=== PATIENT | female | born 1985 | race Two or more races ===

== ENCOUNTER 2017-12-28 22:22 | Emergency (ER) | payer MEDICAID ==
[2017-12-29] MEDS ORDERED: ALBUTEROL SULFATE 0.083% NEB 2.5 MG/3 ML AMPUL NEB ONE (01:23)
[2017-12-29] MEDS ORDERED: IBUPROFEN 800 MG TABLET PO ONE (01:23)
[2017-12-29] MEDS ORDERED: PREDNISONE 20 MG TABLET PO ONE (01:23)
--- NOTE | 2017-12-29 01:23 | ER Document Report ---
HPI - HPI Pain Level: 3 Context: Patient is a 32-year-old female presents emergency department with a chief complaint of body aches, sinus congestion, nonproductive cough. She does admit to a history of asthma. She states that she did run out of her inhaler and feels that she has been coughing more over the past couple of days. States she has been taking Tylenol Motrin at home as needed for body aches. She otherwise denies any dyspnea on exertion, chest pain, weakness, syncope - REPRODUCTIVE Reproductive: DENIES: : - DERM Skin Color: Normal Past Medical History - Social History Smoking Status: Never Smoker Family History: Reviewed & Not Pertinent Patient has suicidal ideation: No Patient has homicidal ideation: No Pulmonary Medical History: Reports: Hx Asthma Renal/ Medical History: Reports: Hx Peritoneal Dialysis Past Surgical History: Reports: Hx Section - Immunizations Hx Diphtheria, Pertussis, Tetanus Vaccination: No Vertical Provider Document - CONSTITUTIONAL Agree With Documented VS: Yes Notes: PHYSICAL EXAM GENERAL: Alert, interacts well. HEAD: Normocephalic, atraumatic. EYES: Pupils equal, round, and reactive to light. Extraocular movements intact. ENT: Oral mucosa moist, tongue midline. NECK: Full range of motion. Supple. Trachea midline. LUNGS: Clear to auscultation bilaterally, no wheezes, rales, or rhonchi. No respiratory distress. HEART: Regular rate and rhythm. No murmurs, gallops, or rubs. ABDOMEN: Soft, nondistended, nontender. No guarding, rebound, or rigidity.. Bowel sounds present in all 4 quadrants. EXTREMITIES: Moves all 4 extremities spontaneously. No edema, radial and dorsalis pedis pulses 2/4 bilaterally. No cyanosis. NEUROLOGICAL: Alert and oriented x4. Normal speech. PSYCH: Normal affect, normal mood. SKIN: Warm, dry, normal turgor. No rashes or lesions noted. - INFECTION CONTROL TRAVEL OUTSIDE OF THE [place] IN LAST 30 DAYS: No Course - Re-evaluation Re-evalutation: 12/29/17 01:58 Presentation is most consistent with a viral upper respiratory infection. Patient is overall well appearance, vitals within normal limits, well-hydrated. Patient denies any headache, neck pain, and has no evidence of meningismus on examination. Lungs are clear bilaterally. No evidence of respiratory distress. Based on clinical exam and history, I do not suspect an acute pneumonia, meningitis, strep pharyngitis, or an acute encephalitis. No laboratory or imaging testing is indicated at this time. Will discharge patient with return precautions and followup recommendations. They are in agreement this plan have verbalized understanding return precautions. - Vital Signs Vital signs: Temp Pulse Resp BP Pulse Ox 99.9 F 95 20 154/89 H 98 12/28/17 22:29 12/28/17 22:29 12/28/17 22:29 12/28/17 22:29 12/28/17 22:29 Discharge - Discharge Clinical Impression: Asthma Condition: Good Disposition: HOME, SELF-CARE Instructions: Asthma ([facility]), Viral Syndrome ([facility]) Additional Instructions: Please start taking Motrin up to 800 mg every 8 hours or 600 mg every 6 hours for body aches and he can also take [id number] Tylenol as directed on the bottle. Regarding your cough he can start taking Mucinex which will help bring up a lot of your sputum. Please be sure to take your steroids as directed. Please follow-up with primary care doctor in the next week. Please return to the emergency department for any worsening shortness of breath, fever, difficulty breathing Prescriptions: Albuterol Sulfate [Proair HFA Inhalation Aerosol 8.5 gm MDI] 2 puff IH Q4H PRN # 1 mdi PRN Reason: Prednisone [Deltasone 20 mg Tablet] 3 tab PO DAILY 5 Days tablet Forms: Return to Work
[2017-12-29] MEDS ORDERED: ALBUTEROL SULFATE HFA (90 MCG/PUFF) 8 GM MDI (1 MDI/ER DISP) IH PRN (01:26)
[2017-12-29 01:54] VITALS: BP 141/75
== END 2017-12-29 01:54 | disposition home or self-care (01) ==
LOC: ER 22:22
DX: J45.909 Unspecified asthma, uncomplicated (principal); R52 Pain, unspecified; R09.81 Nasal congestion; R05 Cough
CPT/HCPCS: 99283; J3490 ×2; J7512

== ENCOUNTER 2017-12-31 15:59 | Emergency (ER) | payer MEDICAID ==
--- NOTE | 2017-12-31 16:36 | ER Document Report ---
ED Respiratory Problem - General Chief Complaint: Cough Stated Complaint: COUGH Time Seen by Provider: 12/31/17 16:18 Mode of Arrival: Medic Information source: Patient Notes: 32-year-old female presents to ED for complaint of body aches cough congestion' s chills feels like she has a fever with sweating. She states she does not take her temperature. She states yesterday she got cough and so bad that she almost passed out. She states she has vomited clear fluid a couple times yesterday. She states she was seen on the fifth but they did not do any labs or x-rays. She states she is not feeling any better. Today she has a red rash to the left lower leg. TRAVEL OUTSIDE OF THE [place] IN LAST 30 DAYS: No - HPI Patient complains to provider of: COPD Onset: Last week Duration: Continuous Initiating Event: URI Quality of pain: Achy Severity: Severe Pain Level: 5 Associated symptoms: Congestion, Cough, PND, Runny nose, Sinus pain/pressure, Short of breath, Sore Throat, Other - Rash to the left lower leg/ankle, body aches Similar symptoms previously: Yes Recently seen / treated by doctor: Yes - Related Data Allergies/Adverse Reactions: No Known Allergies Allergy (Verified 12/31/17 16:02) Past Medical History - General Information source: Patient - Social History Smoking Status: Never Smoker Cigarette use (# per day): No Chew tobacco use (# tins/day): No Smoking Education Provided: No Frequency of alcohol use: None Drug Abuse: None Family History: Reviewed & Not Pertinent Patient has suicidal ideation: No Patient has homicidal ideation: No - Past Medical History Cardiac Medical History: Reports: None Pulmonary Medical History: Reports: Hx Asthma EENT Medical History: Reports: None Neurological Medical History: Reports: None Endocrine Medical History: Reports: None Renal/ Medical History: Reports: Hx Peritoneal Dialysis Malignancy Medical History: Reports: None GI Medical History: Reports: None Musculoskeltal Medical History: Reports None Skin Medical History: Reports None Psychiatric Medical History: Reports: None Traumatic Medical History: Reports: None Infectious Medical History: Reports: None Past Surgical History: Reports: Hx Section - Immunizations Immunizations up to date: No Hx Diphtheria, Pertussis, Tetanus Vaccination: No Review of Systems - Review of Systems Constitutional: Chills, Fever, Recent illness EENT: Nose discharge, Sinus pressure, Sinus discharge, Throat pain Cardiovascular: No symptoms reported Respiratory: Cough Gastrointestinal: No symptoms reported Genitourinary: No symptoms reported Female Genitourinary: No symptoms reported Musculoskeletal: No symptoms reported Skin: No symptoms reported Hematologic/Lymphatic: No symptoms reported Neurological/Psychological: No symptoms reported -: Yes All other systems reviewed and negative Physical Exam - Vital signs Vitals: Temp Pulse Resp BP Pulse Ox 98.0 F 83 18 121/75 98 12/31/17 16:04 12/31/17 16:04 12/31/17 16:04 12/31/17 16:04 12/31/17 16:04 Interpretation: Normal - General General appearance: Appears well, Alert - HEENT Head: Normocephalic, Atraumatic Eyes: Normal Pupils: PERRL Ears: Normal External canal: Normal Tympanic membrane: Normal Sinus: Normal Nasal: Purulent discharge, Swelling Mouth/Lips: Normal Mucous membranes: Normal Pharynx: Post nasal drainage Neck: Normal - Respiratory Respiratory status: No respiratory distress Chest status: Nontender Breath sounds: Nonproductive cough. No: Productive cough, Rales, Rhonchi, Stridor, Wheezing Chest palpation: Normal - Cardiovascular Rhythm: Regular Heart sounds: Normal auscultation Murmur: No - Abdominal Inspection: Normal Distension: No distension Bowel sounds: Normal Tenderness: Nontender Organomegaly: No organomegaly - Back Back: Normal, Nontender - Extremities General upper extremity: Normal inspection, Nontender, Normal color, Normal ROM , Normal temperature General lower extremity: Normal inspection, Nontender, Normal color, Normal ROM , Normal temperature, Normal weight bearing. No: Kristie's sign - Neurological Neuro grossly intact: Yes Cognition: Normal Orientation: AAOx4 Soni Coma Scale Eye Opening: Spontaneous [place] Coma Scale Verbal: Oriented [place] Coma Scale Motor: Obeys Commands Soni Coma Scale Total: 15 Speech: Normal Motor strength normal: LUE, RUE, LLE, RLE Sensory: Normal - Psychological Associated symptoms: Normal affect, Normal mood - Skin Skin Temperature: Warm Skin Moisture: Dry Skin Color: Normal Course - Re-evaluation Re-evalutation: 12/31/17 21:58 After performing a Medical Screening Examination, I estimate there is LOW risk for ACUTE CORONARY SYNDROME, RESPIRATORY FAILURE, SEPSIS OR MENINGITIS, thus I consider the discharge disposition reasonable. I have reevaluated this patient multiple times and no significant life threatening changes are noted. The patient and I have discussed the diagnosis and risks, and we agree with discharging home with close follow-up. We also discussed returning to the Emergency Department immediately if new or worsening symptoms occur. We have discussed the symptoms which are most concerning (e.g., changing or worsening pain, trouble swallowing or breathing, neck stiffness, fever) that necessitate immediate return. - Vital Signs Vital signs: Temp Pulse Resp BP Pulse Ox 98.2 F 86 18 127/73 H 100 12/31/17 17:44 12/31/17 17:44 12/31/17 17:44 12/31/17 17:44 12/31/17 17:44 - Laboratory Result Diagrams: 12/31/17 16:35 12/31/17 16:35 Laboratory results interpreted by me: 12/31/17 12/31/17 16:35 16:35 WBC 3.3 L Absolute Neutrophils 1.5 L Potassium 3.4 L Discharge - Discharge Clinical Impression: URI (upper respiratory infection) Qualifiers: URI type: unspecified URI Qualified Code(s): J06.9 - Acute upper respiratory infection, unspecified Condition: Stable Disposition: HOME, SELF-CARE Instructions: Family Physicians / Practices Additional Instructions: UPPER RESPIRATORY ILLNESS: You have a viral infection of the respiratory passages -- a "cold." This common infection causes nasal congestion, drainage, and often sore throat and cough. It is highly contagious. The disease usually lasts about 10 to 14 days. There is no "cure" for the viral infection -- it must run its course. If there is a complication, such as bacterial infection in the nose, sinuses, middle ear, or bronchial tubes, antibiotics may be required. The antibiotics won't affect the virus. Drink plenty of fluids. A humidifier may help. An expectorant medication or decongestant may make you more comfortable. Use acetaminophen or ibuprofen for fever or aches. See the doctor if fever persists over two days, if there is any significant worsening of your symptoms, or if you simply fail to improve as expected. DECONGESTANT MEDICATION: A decongestant medicine has been suggested. Often this medicine is combined in the same tablet with an antihistamine or expectorant. This type of medicine is helpful in treating a bad cold or sinus condition, as well as in treatment of the nasal congestion of hay fever. It is not of much benefit for lung infections. Decongestant medicines are related to stimulants. They can cause an increase in blood pressure and heart rate. Persons with heart disease and high blood pressure should not take decongestants without discussing this with the physician. If you develop palpitations, chest pain, headache, or tremors, stop the medicine and consult your physician. COUGH-SUPPRESSANT & EXPECTORANT MEDICATION: You are to use a cough medication as needed for relief of symptoms. This medicine is a combination of an expectorant (to make the mucous thinner and more easily "coughed up") and a cough suppressant (to reduce the frequency of coughing). The cough-suppressant medicine is related to narcotics. You may experience mild nausea and sleepiness. Some patients who are very sensitive to narcotics may have stomach pain from this medicine. Taking the medicine with food reduces these side effects. Do not drive or work with machinery until you know how this medicine affects you. The expectorant should have no side effects. Iodine-containing expectorants (such as organidin) should not be taken by persons with active thyroid disease unless approved by your doctor. Call the doctor if you develop shortness of breath, hives, rash, itching, lightheadedness, or severe nausea and vomiting. USE OF ACETAMINOPHEN (Tylenol): Acetaminophen may be taken for pain relief or fever control. It's much safer than aspirin, offering a wider range of "safe" dosages. It is safe during . Some brand names are Tylenol, Panadol, Datril, Anacin 3, Tempra, and Liquiprin. Acetaminophen can be repeated every four hours. The following are maximum recommended dosages: >89 pounds or adults 650 mg to 900 mg Acetaminophen can be repeated every four hours. Maximum dose not to exceed 4000 mg a day. FOLLOW-UP CARE: If you have been referred to a physician for follow-up care, call the physician s office for an appointment as you were instructed or within the next two days. If you experience worsening or a significant change in your symptoms, notify the physician immediately or return to the Emergency Department at any time for re-evaluation. Forms: Return to Work Referrals: [facility] [Provider Group] - Follow up as needed
[2017-12-31 16:57] LABS: ABSOLUTE EOSINOPHILS # (AUTO) 0.1 10^3/uL (0.0-0.6); ABSOLUTE LYMPHOCYTES (AUTO) 1.3 10^3/uL (0.5-4.7); ABSOLUTE MONOCYTES (AUTO) 0.4 10^3/uL (0.1-1.4); ABSOLUTE NEUT (AUTO) 1.5 10^3/uL (1.7-8.2); BASOPHILS % (AUTO) 0.5 % (0-2); EOSINOPHILS % (AUTO) 1.8 % (0-6); HEMATOCRIT 38.3 % (36.0-47.0); HEMOGLOBIN 13.3 g/dL (12.0-15.5); LYMPHOCYTES % (AUTO) 40.4 % (13-45); MEAN CORPUSCULAR HEMOGLOBIN 29.1 pg (27.0-33.4); MEAN CORPUSCULAR HGB CONC 34.8 g/dL (32.0-36.0); MEAN CORPUSCULAR VOLUME 84 fl (80-97); MONOCYTES % (AUTO) 10.8 % (3-13); PLATELET COUNT 200 10^3/uL (150-450); RED BLOOD COUNT 4.58 10^6/uL (3.72-5.28); RED CELL DISTRIBUTION WIDTH 13.4 % (11.5-14.0); SEGMENTED NEUTROPHILS % (AUTO) 46.5 % (42-78); TOTAL CELLS COUNTED % (AUTO) 100 %; WHITE BLOOD COUNT 3.3 10^3/uL (4.0-10.5)
--- NOTE | 2017-12-31 17:06 | RADIOLOGY REPORT (SQ) ---
EXAM DESCRIPTION: CHEST 2 VIEWS COMPLETED DATE/TIME: 12/31/2017 4:53 pm REASON FOR STUDY: cough congestion COMPARISON: 07/26/2016 EXAM PARAMETERS: NUMBER OF VIEWS: two views TECHNIQUE: Digital Frontal and Lateral radiographic views of the chest acquired. RADIATION DOSE: NA LIMITATIONS: none FINDINGS: LUNGS AND PLEURA: No opacities, masses or pneumothorax. No pleural effusion. MEDIASTINUM AND HILAR STRUCTURES: No masses or contour abnormalities. HEART AND VASCULAR STRUCTURES: Heart normal size. No evidence for failure. BONES: No acute findings. HARDWARE: None in the chest. OTHER: No other significant finding. IMPRESSION: NO ACUTE RADIOGRAPHIC FINDING IN THE CHEST. TECHNICAL DOCUMENTATION: JOB ID: [id number] [place]-72 2010 [employer]- All Rights Reserved Reading location - IP/workstation name: [employer]
[2017-12-31 17:18] LABS: INTERNATIONAL RATION (INR) 0.91; PROTHROMBIN TIME 12.7 SEC (11.4-15.4)
[2017-12-31 17:19] LABS: ALANINE AMINOTRANSFERASE 36 U/L (9-52); ALKALINE PHOSPHATASE 52 U/L (38-126); ANION GAP 11 (5-19); ASPARTATE AMINO TRANSFERASE 22 U/L (14-36); BILIRUBIN,DIRECT 0.1 mg/dL (0.0-0.4); BILIRUBIN,TOTAL 0.4 mg/dL (0.2-1.3); BLOOD UREA NITROGEN 12 mg/dL (7-20); CALCIUM 9.5 mg/dL (8.4-10.2); CARBON DIOXIDE 26 mmol/L (22-30); CHLORIDE 106 mmol/L (98-107); GLUCOSE 96 mg/dL (75-110); POTASSIUM 3.4 mmol/L (3.6-5.0); SODIUM 142.7 mmol/L (137-145); TOTAL PROTEIN 6.8 g/dL (6.3-8.2)
[2017-12-31 17:47] VITALS: BP 127/73
== END 2017-12-31 17:47 | disposition home or self-care (01) ==
LOC: ER 15:59
DX: J06.9 Acute upper respiratory infection, unspecified (principal); J45.909 Unspecified asthma, uncomplicated; R05 Cough; R11.10 Vomiting, unspecified; J34.89 Other specified disorders of nose and nasal sinuses; R06.02 Shortness of breath; J02.9 Acute pharyngitis, unspecified
CPT/HCPCS: 36415; 71046; 80053; 84703; 85025; 85610; 85730; 99283

== ENCOUNTER → 2018-01-11 | Outpatient (CLI) | payer MEDICAID ==
--- NOTE | 2018-01-11 17:14 | XCELERA REPORT ---
[address] [address] Lower Extremity Venous Evaluation Name: CRISTEL RAMOS Age: 32 yrs Gender: Female : 1985 Patient Status: Outpatient Patient Location: Study Date: 01/11/2018 11:01 AM Procedure: Color flow and duplex imaging bilaterally of the veins of the lower extremities as well as the Common Femoral veins. Reason For Study: PAIN Ordering Physician: DALI CHAN Performed By: Ariadne Cunningham Right Sided Venous Evaluation Normal vessel filling wall to wall, compression and augmentation as well as Colour flow down to the infrageniculate veins. Left Sided Venous Evaluation Reflux in distal Femoral, Popliteal and Short Saphenous veins. Normal vessel filling wall to wall, compression and augmentation as well as Colour flow down to the infrageniculate veins. Interpretation Summary No duplex evidence of DVT or obstruction in the bilateral lower extremities. Reflux as noted. : DALI CHAN > Fritz Michael
== END ==
LOC: SP 10:01
PROVIDERS: ATTEND Family Medicine
DX: M79.605 Pain in left leg (principal)
CPT/HCPCS: 93970

== ENCOUNTER 2018-03-13 18:15 | Emergency (ER) | payer MEDICAID ==
[2018-03-13 18:23] VITALS: BP 145/78
--- NOTE | 2018-03-13 19:00 | ER Document Report ---
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 no specific injury Associated Symptoms: None Exacerbated by: Movement Relieved by: Denies Similar symptoms previously: Yes - ROS ROS below otherwise negative: Yes Systems Reviewed and Negative: Yes All other systems reviewed and negative - MUSCULOSKELETAL Musculoskeletal: REPORTS: Extremity pain - BILATERAL UPPER EXTREMITIES Past Medical History - General Information source: Patient - Social History Smoking Status: Unknown if Ever Smoked Chew tobacco use (# tins/day): No Frequency of alcohol use: None Drug Abuse: None Lives with: Spouse/Significant other Family History: Reviewed & Not Pertinent Patient has suicidal ideation: No Patient has homicidal ideation: No Pulmonary Medical History: Reports: Hx Asthma Renal/ Medical History: Denies: Hx Peritoneal Dialysis Past Surgical History: Reports: Hx Section - Immunizations Immunizations up to date: No Hx Diphtheria, Pertussis, Tetanus Vaccination: No Vertical Provider Document - CONSTITUTIONAL Agree With Documented VS: Yes Exam Limitations: No Limitations General Appearance: No Apparent Distress - INFECTION CONTROL TRAVEL OUTSIDE OF THE [place] IN LAST 30 DAYS: No - HEENT HEENT: Normocephalic - NECK Neck: Supple - MUSCULOSKELETAL/EXTREMETIES Musculoskeletal/Extremeties: MAEW, FROM, Tender - radial and volar foreaem soft tissue tender, especially over tendons, no isidoro tenderness - NEURO Level of Consciousness: Awake Motor/Sensory: No Motor Deficit, No Sensory Deficit - DERM Integumentary: No Rash Course - Re-evaluation Re-evalutation: 03/13/18 19:30 Prelim x-ray is negative - Vital Signs Vital signs: Temp Pulse Resp BP Pulse Ox 99.2 F 74 15 145/78 H 97 03/13/18 18:22 03/13/18 18:22 03/13/18 18:22 03/13/18 18:22 03/13/18 18:22 Procedures - Immobilization Right Wrist Time completed: 19:45 Pre-Proc Neuro Vasc Exam: Normal Immobilizer type: Cock-up Performed by: PCT Post-Proc Neuro Vasc Exam: Normal Alignment checked and good: Yes Discharge - Discharge Clinical Impression: Right wrist tendinitis Condition: Good Disposition: HOME, SELF-CARE Instructions: Acetaminophen, Ibuprofen (General) ([facility]), Temporary Splint ([facility]) , Tendonitis ([facility]) Additional Instructions: Call and schedule appointment with orthopedic doctor Juancarlos cardona splint for comfort Motrin on a regular basis with food Tylenol for pain up to 4000 mg per day Return to the emergency room any concerns Prescriptions: Ibuprofen [Motrin 800 mg Tablet] 800 mg PO Q8HP PRN #30 tablet PRN Reason: Referrals: ALBERTINA VALDEZ MD [ACTIVE STAFF] - Follow up as needed (call for appt)
--- NOTE | 2018-03-13 19:43 | RADIOLOGY REPORT (SQ) ---
EXAM DESCRIPTION: WRIST RIGHT 3 VIEWS COMPLETED DATE/TIME: 03/13/2018 7:27 pm REASON FOR STUDY: pain for 2 weeks COMPARISON: None. NUMBER OF VIEWS: Three views. TECHNIQUE: AP, lateral, and oblique radiographic images acquired of the right wrist. LIMITATIONS: None. FINDINGS: MINERALIZATION: Normal. BONES: No acute fracture or dislocation. No worrisome bone lesions. Normal alignment. SOFT TISSUES: No soft tissue swelling. No foreign body. OTHER: No other significant finding. IMPRESSION: NEGATIVE STUDY OF THE RIGHT WRIST. NO RADIOGRAPHIC EVIDENCE OF ACUTE INJURY. TECHNICAL DOCUMENTATION: JOB ID: [id number] [employer]- All Rights Reserved Reading location - IP/workstation name: [email or web address]
== END 2018-03-13 19:45 | disposition home or self-care (01) ==
LOC: ER 18:15
DX: M25.531 Pain in right wrist (principal); M77.9 Enthesopathy, unspecified
CPT/HCPCS: 99283; 73110; L3908

== ENCOUNTER 2018-04-24 22:44 | Emergency (ER) | payer OTHER, MEDICAID ==
[2018-04-24 23:29] VITALS: BP 149/90
--- NOTE | 2018-04-25 00:18 | ER Document Report ---
ED Fall - General Chief Complaint: Fall Injury Stated Complaint: FALL/ R WRIST INJURY Time Seen by Provider: 04/25/18 00:06 TRAVEL OUTSIDE OF THE [place] IN LAST 30 DAYS: No - HPI Notes: 33-year-old female presents with right wrist and low back injury. Yesterday patient was at work when she states she fell on some water in the freezer and fell backwards. Complains of right wrist pain about her dorsal lateral wrist and pain in her lower back. Aching throbbing, nonradiating. No head injury, no numbness tingling, no loss consciousness. No other modifying factors, no other associated symptoms, no other provocative or palliative factors. - Related data Allergies/Adverse Reactions: No Known Allergies Allergy (Verified 12/31/17 16:02) Past Medical History - Social History Smoking Status: Never Smoker Family History: Reviewed & Not Pertinent Pulmonary Medical History: Reports: Hx Asthma Renal/ Medical History: Reports: Hx Peritoneal Dialysis Past Surgical History: Reports: Hx Section - Immunizations Immunizations up to date: No Hx Diphtheria, Pertussis, Tetanus Vaccination: No Review of Systems - Review of Systems Notes: Review of systems as in history of present illness, otherwise no significant headache, chest pain, abdominal pain. Physical Exam - Vital signs Vitals: Temp Pulse Resp BP Pulse Ox 98.6 F 78 16 149/90 H 98 04/24/18 23:27 04/24/18 23:27 04/24/18 23:27 04/24/18 23:27 04/24/18 23:27 - Notes Notes: General: Well-developed, well-nourished HEENT: Normocephalic. No external trauma noted. No haywood sign, no hemotympanum. Mucosa is moist. No intraoral trauma. Neck: Midline trachea, no JVD. No midline cervical spine tenderness. No step- off or deformity. Chest: Normal excursion, no accessory muscle use. No gross trauma. Abdomen: Soft, nondistended. Nontender. No bruising. Pelvis: Stable. Vascular: Strong and symmetric upper and lower extremity pulses. Well-perfused extremities. Motor: Normal tone and power. Neurologic: Alert, nonfocal. Sensation symmetric and intact. Skin: No significant lacerations or purpura. Extremities: No cyanosis. No reproducible bony point tenderness about the wrist. Some mild pain with range of motion. No edema or erythema, no bruising. Back: Mild paralumbar tenderness, no point vertebral tenderness. Course - Re-evaluation Re-evalutation: 04/25/18 00:26 Well-appearing female likely wrist sprain or lumbar strain. I see no bony point tenderness or high-risk features. She is advised if she has persistent symptoms for more than a few days to follow-up with primary care physician and x -ray may be in order. Given a wrist splint for comfort. Naprosyn and Flexeril are prescribed. Otherwise no bony tenderness about her spine, no indication for lumbar spine films. - Vital Signs Vital signs: Temp Pulse Resp BP Pulse Ox 98.6 F 78 16 149/90 H 98 04/24/18 23:27 04/24/18 23:27 04/24/18 23:27 04/24/18 23:27 04/24/18 23:27 Discharge - Discharge Clinical Impression: Wrist sprain Qualifiers: Encounter type: initial encounter Laterality: right Qualified Code(s): S63.501A - Unspecified sprain of right wrist, initial encounter Lumbar strain Qualifiers: Encounter type: initial encounter Qualified Code(s): S39.012A - Strain of muscle, fascia and tendon of lower back, initial encounter Condition: Good Disposition: HOME, SELF-CARE Instructions: Low Back Pain ([facility]), Wrist Sprain ([facility]) Prescriptions: Cyclobenzaprine HCl [Flexeril 10 mg Tablet] 10 mg PO TIDP PRN #15 tab NS PRN Reason: Naproxen 500 mg PO Q12 PRN #12 tablet PRN Reason: Referrals: DALI CHAN MD [Primary Care Provider] - Follow up as needed
== END 2018-04-25 01:03 | disposition home or self-care (01) ==
LOC: ER 22:44
DX: S63.501A Unspecified sprain of right wrist, initial encounter (principal); S39.012A Strain of muscle, fascia and tendon of lower back, initial encounter; W01.0XXA Fall on same level from slipping, tripping and stumbling without subsequent striking against object, initial encounter; Y99.0 Civilian activity done for income or pay
CPT/HCPCS: 99283; L3908

== ENCOUNTER 2018-10-09 12:40 | Emergency (ER) | payer MEDICAID ==
[2018-10-09 12:45] VITALS: BP 135/85
[2018-10-09] MEDS ORDERED: IPRATROPIUM/ALBUTEROL 0.5-2.5 MG/3 ML AMPUL NEB ONE (12:56)
[2018-10-09] MEDS ORDERED: DEXAMETHASONE 4 MG TABLET PO ONE (12:56)
[2018-10-09] MEDS ORDERED: PSEUDOEPHEDRINE HCL 30 MG TABLET PO ONE (12:56)
[2018-10-09] MEDS ORDERED: IBUPROFEN 800 MG TABLET PO ONE (12:56)
--- NOTE | 2018-10-09 12:57 | ER Document Report ---
HPI - HPI Patient complains to provider of: Sore throat Time Seen by Provider: 10/09/18 12:51 Onset/Duration: Persistent Quality of pain: Achy Pain Level: 3 Context: Patient presents complaining of sore throat for the past 3 days with cough and congestion. Patient denies any fever. Associated Symptoms: Nonproductive cough, Rhinnorhea, Sinus pain/drainage, Sore throat. denies: Fever Exacerbated by: Denies Relieved by: Denies Similar symptoms previously: No Recently seen / treated by doctor: No - ROS ROS below otherwise negative: Yes Systems Reviewed and Negative: Yes All other systems reviewed and negative - CONSTITUTIONAL Constitutional: DENIES: Fever, Chills - EENT EENT: REPORTS: Sore Throat, Nasal Drainage-Clear, Congestion - RESPIRATORY Respiratory: REPORTS: Coughing. DENIES: Trouble Breathing - GASTROINTESTINAL Gastrointestinal: DENIES: Abdominal Pain, Nausea - REPRODUCTIVE Reproductive: DENIES: : - MUSCULOSKELETAL Musculoskeletal: DENIES: Back Pain, Neck Pain - DERM Skin Color: Normal Skin Problems: None Past Medical History - General Information source: Patient - Social History Smoking Status: Never Smoker Frequency of alcohol use: None Drug Abuse: None Occupation: [employer] Family History: Reviewed & Not Pertinent Pulmonary Medical History: Reports: Hx Asthma Renal/ Medical History: Reports: Hx Peritoneal Dialysis Past Surgical History: Reports: Hx Section - Immunizations Immunizations up to date: No Hx Diphtheria, Pertussis, Tetanus Vaccination: No Vertical Provider Document - CONSTITUTIONAL Agree With Documented VS: Yes Exam Limitations: No Limitations General Appearance: WD/WN, No Apparent Distress - INFECTION CONTROL TRAVEL OUTSIDE OF THE U[place]S. IN LAST 30 DAYS: No - HEENT HEENT: Atraumatic, Normocephalic, Pharyngeal Tenderness, Pharyngeal Erythema. negative: Pharyngeal Exudate, Tympanic Membrane Red, Tympanic Membrane Bulging - NECK Neck: Normal Inspection, Supple. negative: Lymphadenopathy-Left, Lymphadenopathy-Right - RESPIRATORY Respiratory: No Respiratory Distress, Chest Non-Tender, Wheezing - faintly with cough only - CARDIOVASCULAR Cardiovascular: Regular Rate, Regular Rhythm, No Murmur - GI/ABDOMEN Gastrointestinal: Abdomen Soft - BACK Back: Normal Inspection - MUSCULOSKELETAL/EXTREMETIES Musculoskeletal/Extremeties: MAEW, No Edema - NEURO Level of Consciousness: Awake, Alert, Appropriate Motor/Sensory: No Motor Deficit - DERM Integumentary: Warm, Dry, No Rash Course - Vital Signs Vital signs: Temp Pulse Resp BP Pulse Ox 97.6 F 79 18 135/85 H 97 10/09/18 12:44 10/09/18 12:44 10/09/18 12:44 10/09/18 12:44 10/09/18 12:44 - Laboratory Laboratory results interpreted by me: 10/09/18 13:21 Labs- Entire Visit 10/09/18 12:55 Group A Strep Rapid NEGATIVE Discharge - Discharge Clinical Impression: Sore throat Upper respiratory infection Qualifiers: URI type: unspecified URI Qualified Code(s): J06.9 - Acute upper respiratory infection, unspecified Condition: Stable Disposition: HOME, SELF-CARE Instructions: Inhaled Bronchodilators ([facility]), Sore Throat ([facility]), Steroid Medication, Upper Respiratory Illness ([facility]) Additional Instructions: Return immediately for any new or worsening symptoms Followup with your primary care provider, call tomorrow to make a followup appointment Prescriptions: Albuterol Sulfate [Proair Hfa Inhalation Aerosol 8.5 gm Mdi] 2 puff IH Q4 PRN #1 mdi PRN Reason: Guaifenesin/Pseudoephedrne HCl [Mucinex D ER Tablet] 1 each PO Q12 PRN #12 tab.er.12h PRN Reason: Naproxen [Naprosyn 250 Nmg Tablet] 1 tab PO BID #14 tablet Forms: Return to Work Referrals: DALI CHAN MD [ACTIVE STAFF] - Follow up tomorrow
== END 2018-10-09 13:34 | disposition home or self-care (01) ==
LOC: ER 12:40
DX: J02.9 Acute pharyngitis, unspecified (principal); J06.9 Acute upper respiratory infection, unspecified; R05 Cough; J34.89 Other specified disorders of nose and nasal sinuses; J45.909 Unspecified asthma, uncomplicated
CPT/HCPCS: 94640; 99283; 87070; 87880; J3490 ×2; J7620

== ENCOUNTER 2019-03-26 15:14 | Emergency (ER) | payer SELFPAY ==
--- NOTE | 2019-03-26 17:05 | ER Document Report ---
ED Medical Screen (RME) - General Chief Complaint: Abdominal Pain Stated Complaint: ABDOMINAL PAIN Time Seen by Provider: 03/26/19 17:04 Primary Care Provider: VINEET WILLINGHAM PA-C [Primary Care Provider] - Follow up as needed TRAVEL OUTSIDE OF THE U.S. IN LAST 30 DAYS: No - HPI Notes: 03/26/19 17:04 Patient is a 34-year-old female with no significant past medical history who pr esents complaining of right lower pelvic pain that began this afternoon and has been sharp/intermittent. Patient states that she has had issues with her menstrual cycle recently and had an episode of brief spotting the other day. Patient states that she does have some soreness in her right lower back that does not radiate. She is otherwise able to eat and drink without difficulty. She is urinating normally and having normal bowel movements. No other vaginal discharge or odor. Denies EDWARDS, fever, neck pain, URI, CP, SOB, dysuria, or rash. I have treated and performed a rapid initial assessment of this patient. A comprehensive ED assessment and evaluation of the patient, analysis of test results and completion of medical decision making process will be conducted by additional ED providers. PHYSICAL EXAMINATION: GENERAL: Well-appearing, well-nourished and in no acute distress. A&Ox4. Answers questions appropriately. LUNGS: Breath sounds clear to auscultation bilaterally and equal. No wheezes rales or rhonchi. HEART: Regular rate and rhythm without murmurs, rubs, gallops. ABDOMEN: Soft, nondistended abdomen. No guarding, no rebound. Normal bowel sounds present. No CVA tenderness bilaterally. + rt lower pelvic tenderness (cannot elicit thorough abd exam w/o bed, however). - Related Data Allergies/Adverse Reactions: No Known Allergies Allergy (Verified 10/09/18 12:41) Past Medical History - Social History Family history: Reviewed & Not Pertinent Pulmonary Medical History: Reports: Hx Asthma Renal/ Medical History: Reports: Hx Peritoneal Dialysis Past Surgical History: Reports: Hx Section - Immunizations Immunizations up to date: No Hx Diphtheria, Pertussis, Tetanus Vaccination: No Physical Exam - Vital signs Vitals: Temp Pulse Resp BP Pulse Ox 98.1 F 101 H 18 138/92 H 96 03/26/19 15:19 03/26/19 15:19 03/26/19 15:19 03/26/19 15:19 03/26/19 15:19 Course - Vital Signs Vital signs: Temp Pulse Resp BP Pulse Ox 98.1 F 101 H 18 138/92 H 96 03/26/19 15:19 03/26/19 15:19 03/26/19 15:19 03/26/19 15:19 03/26/19 15:19 Doctor's Discharge - Discharge Referrals: VINEET WILLINGHAM PA-C [Primary Care Provider] - Follow up as needed
[2019-03-26 18:27] LABS: ABSOLUTE EOSINOPHILS # (AUTO) 0.2 10^3/uL (0.0-0.6); ABSOLUTE LYMPHOCYTES (AUTO) 2.1 10^3/uL (0.5-4.7); ABSOLUTE MONOCYTES (AUTO) 0.4 10^3/uL (0.1-1.4); ABSOLUTE NEUT (AUTO) 4.6 10^3/uL (1.7-8.2); BASOPHILS % (AUTO) 0.5 % (0-2); EOSINOPHILS % (AUTO) 2.9 % (0-6); HEMATOCRIT 36.3 % (36.0-47.0); HEMOGLOBIN 12.5 g/dL (12.0-15.5); LYMPHOCYTES % (AUTO) 27.9 % (13-45); MEAN CORPUSCULAR HEMOGLOBIN 28.9 pg (27.0-33.4); MEAN CORPUSCULAR HGB CONC 34.3 g/dL (32.0-36.0); MEAN CORPUSCULAR VOLUME 84 fl (80-97); MONOCYTES % (AUTO) 6.1 % (3-13); PLATELET COUNT 257 10^3/uL (150-450); RED BLOOD COUNT 4.31 10^6/uL (3.72-5.28); SEGMENTED NEUTROPHILS % (AUTO) 62.6 % (42-78); TOTAL CELLS COUNTED % (AUTO) 100 %; WHITE BLOOD COUNT 7.4 10^3/uL (4.0-10.5)
[2019-03-26 18:30] LABS: APPEARANCE,URINE CLEAR; BILIRUBIN,URINE NEGATIVE (NEGATIVE); COLOR,URINE YELLOW; GLUCOSE, URINE NEGATIVE (NEGATIVE); KETONES,URINE NEGATIVE (NEGATIVE); LEUKOCYTE ESTERASE,URINE NEGATIVE (NEGATIVE); NITRITE,URINE NEGATIVE (NEGATIVE); PROTEIN,URINE NEGATIVE (NEGATIVE); URINE SPECIFIC GRAVITY 1.025; UROBILINOGEN,URINE NEGATIVE mg/dL (<2.0)
[2019-03-26 18:43] LABS: ANION GAP 9 (5-19); BLOOD UREA NITROGEN 14 mg/dL (7-20); CALCIUM 9.8 mg/dL (8.4-10.2); CARBON DIOXIDE 30 mmol/L (22-30); CHLORIDE 100 mmol/L (98-107); GLUCOSE 86 mg/dL (75-110); POTASSIUM 4.2 mmol/L (3.6-5.0); SODIUM 139.3 mmol/L (137-145)
--- NOTE | 2019-03-26 19:32 | RADIOLOGY REPORT (SQ) ---
EXAM DESCRIPTION: U/S NON OB PEL TV W/DOPPLER COMPLETED DATE/TIME: 03/26/2019 7:22 pm REASON FOR STUDY: rt pelvic pain LMP 03/13/2019 COMPARISON: None. TECHNIQUE: Dynamic and static grayscale images acquired of the pelvis via transvaginal approach and recorded on PACS. Additional selected color Doppler and spectral images recorded. LIMITATIONS: None. FINDINGS: UTERUS: Contour normal. No mass. ENDOMETRIAL STRIPE: No focal or generalized thickening. No masses. CERVIX: 2.4 cm. No nabothian cysts. RIGHT OVARY AND DOPPLER: Normal size. No worrisome masses. Normal arterial vascular flow without evid ence for torsion. There is a small septated cystic area measuring 18 x 24 x 14 mm. LEFT OVARY AND DOPPLER: Ovary not seen. FREE FLUID: None noted. OTHER: No other significant finding. MEASUREMENTS: UTERUS: 10.6 x 7.2 x 5.8 cm. ENDOMETRIAL STRIPE: 13 mm. RIGHT OVARY: 3.4 x 3.1 x 2.7 cm. LEFT OVARY: Ovary not seen. IMPRESSION: Essentially normal study. There is a small septated cystic area or cluster of small cys ts in the right ovary as described. TECHNICAL DOCUMENTATION: JOB ID: [id number] [employer]- All Rights Reserved Rev-02/09 Reading location - IP/workstation name: [email or web address]
[2019-03-26] MEDS ORDERED: KETOROLAC TROMETHAMINE 60 MG/2 ML SDV IM ONE (22:56)
[2019-03-26 22:57] VITALS: BP 137/90
--- NOTE | 2019-03-26 22:57 | ER Document Report ---
ED General - General Chief Complaint: Abdominal Pain Stated Complaint: ABDOMINAL PAIN Time Seen by Provider: 03/26/19 17:04 Primary Care Provider: VINEET WILLINGHAM PA-C [Primary Care Provider] - Follow up as needed Notes: Patient is a 34-year-old female without chronic medical problems, history of morbid obesity, presents with complaints of 2 to 3 days of intermittent pain to her right lower abdomen. Patient reports pain as being a throbbing, aching pain. Comes and goes. No exacerbating or alleviating factors. States that symptoms have been relatively unchanged since onset. Denies a history of similar symptoms in the past. States for the past 6 weeks she has been having irregular vaginal bleeding. She does not follow with an [facility]. She has not had fever or constitutional symptoms. Denies pain at the time of my assessment. No dysuria. TRAVEL OUTSIDE OF THE [place] IN LAST 30 DAYS: No - Related Data Allergies/Adverse Reactions: No Known Allergies Allergy (Verified 10/09/18 12:41) Past Medical History - General Information source: Patient - Social History Smoking Status: Never Smoker Frequency of alcohol use: None Drug Abuse: None Lives with: Family Family History: Reviewed & Not Pertinent Patient has suicidal ideation: No Patient has homicidal ideation: No Pulmonary Medical History: Reports: Hx Asthma Renal/ Medical History: Denies: Hx Peritoneal Dialysis Past Surgical History: Reports: Hx Section - Immunizations Immunizations up to date: No Hx Diphtheria, Pertussis, Tetanus Vaccination: No Review of Systems - Review of Systems Notes: Constitutional: Negative for fever. HENT: Negative for sore throat. Eyes: Negative for visual changes. Cardiovascular: Negative for chest pain. Respiratory: Negative for shortness of breath. Gastrointestinal: Positive for lower abdominal pain Genitourinary: Positive for irregular vaginal bleeding Musculoskeletal: Negative for back pain. Skin: Negative for rash. Neurological: Negative for headaches, weakness or numbness. 10 point ROS negative except as marked above and in HPI. Physical Exam - Vital signs Vitals: Temp Pulse Resp BP Pulse Ox 98.1 F 101 H 18 138/92 H 96 03/26/19 15:19 03/26/19 15:19 03/26/19 15:19 03/26/19 15:19 03/26/19 15: Interpretation: Normal - Heart rate at 72 at the time of my assessment Notes: PHYSICAL EXAMINATION: GENERAL: Well-appearing, well-nourished and in no acute distress. HEAD: Atraumatic, normocephalic. EYES: Pupils equal round and reactive to light, extraocular movements intact, sclera anicteric, conjunctiva are normal. ENT: nares patent, oropharynx clear without exudates. Moist mucous membranes. NECK: Normal range of motion, supple without lymphadenopathy LUNGS: Breath sounds clear to auscultation bilaterally and equal. No wheezes rales or rhonchi. HEART: Regular rate and rhythm without murmurs ABDOMEN: Soft, nontender, normoactive bowel sounds. No guarding, no rebound. No masses appreciated. : Focal tenderness to the right adnexa. No suprapubic or left adnexal tenderness. No cervical motion tenderness. No discharge on pelvic examination. EXTREMITIES: Normal range of motion, no pitting or edema. No cyanosis. NEUROLOGICAL: No focal neurological deficits. Moves all extremities sponta neously and on command. PSYCH: Normal mood, normal affect. SKIN: Warm, Dry, normal turgor, no rashes or lesions noted. Course - Re-evaluation Re-evalutation: 03/26/19 22:53 Patient presents with several days of intermittent pain to her right pelvic region. On abdominal exam she has no focal tenderness to the right lower quadrant and no evidence of rebound or guarding. History, exam, absence of fever or leukocytosis are not suggestive of acute appendicitis. On pelvic examination she does have focal tenderness to the right adnexa. Transvaginal ultrasound does show multiple right ovarian cysts which may account for the pa tient's pain. The remainder of her labs and work-up is otherwise unremarkable. She is not , no evidence of cystitis or pyelonephritis. The remainder of her exam is likewise normal. Vitals within normal limits at the time of my assessment. Patient has been noted to be resting comfortably by nursing staff during her time here in the emergency department without any apparent discomfort. Have advised follow-up with [facility] as an outpatient. At this time will discharge with return precautions and follow-up recommendations. Verbal discharge instructions given a the bedside and opportunity for questions given. Medication warnings reviewed. Patient is in agreement with this plan and has verbalized understanding of return precautions and the need for primary care follow-up in the next 24-72 hours. - Vital Signs Vital signs: Temp Pulse Resp BP Pulse Ox 98.1 F 101 H 18 138/92 H 96 03/26/19 15:19 03/26/19 15:19 03/26/19 15:19 03/26/19 15:19 03/26/19 15:19 - Laboratory Result Diagrams: 03/26/19 18:15 03/26/19 18:15 - Diagnostic Test Radiology reviewed: Reports reviewed Discharge - Discharge Clinical Impression: Right lower quadrant abdominal pain, Right ovarian cyst Condition: Good Disposition: HOME, SELF-CARE Additional Instructions: Today been diagnosed with an ovarian cyst. These typically occur in the middle of your typical menstrual cycle. The pain should last for no more than 3-4 days. For your pain: Take ibuprofen 600 mg and acetaminophen 1000 mg every 6 hours together as needed for pain. Please follow-up with your [facility] regarding today's visit. If you have multiple recurrent cyst that continue to cause you pain like this, you may require hormone therapy such as oral control pills to prevent recurrence of the same. Return if you develop fever, nausea, vo miting, worsening abdominal pain, pass out, or have any other symptoms that are worrisome to you. Referrals: VINEET WILLINGHAM PA-C [Primary Care Provider] - Follow up as needed EDD HUTCHINS MD [ACTIVE STAFF] - Follow up in 3-5 days
== END 2019-03-26 23:40 | disposition home or self-care (01) ==
LOC: ER 15:14
DX: N83.291 Other ovarian cyst, right side (principal); R10.31 Right lower quadrant pain; N93.9 Abnormal uterine and vaginal bleeding, unspecified; J45.909 Unspecified asthma, uncomplicated
CPT/HCPCS: 99284; 96374; 36415; 85025; 81025; 80048; 81001; 76830; 93976; J1885

== ENCOUNTER 2019-05-19 17:15 | Emergency (ER) | payer SELFPAY ==
--- NOTE | 2019-05-19 18:50 | ER Document Report ---
ED Medical Screen (RME) - General Chief Complaint: Leg Pain Stated Complaint: LEG PAIN Time Seen by Provider: 05/19/19 18:00 Notes: Otherwise healthy female with remote history of DVT several years ago in [place] secondary to OCP use Asaf with chief complaint of left lower leg pain for the last month. Patient initially thought that she had a rash that was ringworm so she is treated it with for 5 different creams with no success but states that she started having significant pain over the last few days and her left lower extremity. Pain is constant and throbbing. Patient denies fevers or chills, denies active cancer or recent chemotherapy, denies prolonged immobilization, denies acute shortness of breath or chest pain. EXAM: There is an area of ecchymosis with some small petechiae on the anterior left emerson most likely consistent with a burst varicose vein, significant, acute tenderness to palpation over area with some mild tenderness to palpation along the posterior distal left lower extremity, no evidence of unilateral leg swelling I have greeted and performed a rapid initial assessment of this patient. A comprehensive ED assessment and evaluation of the patient, analysis of test results and completion of medical decision making process will be conducted by an additional ED providers. TRAVEL OUTSIDE OF THE U[place]S. IN LAST 30 DAYS: No - Related Data Allergies/Adverse Reactions: No Known Allergies Allergy (Verified 10/09/18 12:41) Past Medical History - Social History Family history: Reviewed & Not Pertinent Pulmonary Medical History: Reports: Hx Asthma Renal/ Medical History: Denies: Hx Peritoneal Dialysis Past Surgical History: Reports: Hx Section - Immunizations Immunizations up to date: No Hx Diphtheria, Pertussis, Tetanus Vaccination: No Physical Exam - Vital signs Vitals: Temp Pulse Resp BP Pulse Ox 98.8 F 96 16 138/80 H 95 05/19/19 17:32 05/19/19 17:32 05/19/19 17:32 05/19/19 17:32 05/19/19 17:32 Course - Vital Signs Vital signs: Temp Pulse Resp BP Pulse Ox 98.8 F 96 16 138/80 H 95 05/19/19 17:32 05/19/19 17:32 05/19/19 17:32 05/19/19 17:32 05/19/19 17:32
[2019-05-19 20:10] LABS: ABSOLUTE EOSINOPHILS # (AUTO) 0.2 10^3/uL (0.0-0.6); ABSOLUTE MONOCYTES (AUTO) 0.4 10^3/uL (0.1-1.4); ABSOLUTE NEUT (AUTO) 4.1 10^3/uL (1.7-8.2); BASOPHILS % (AUTO) 0.4 % (0-2); EOSINOPHILS % (AUTO) 2.7 % (0-6); HEMATOCRIT 35.1 % (36.0-47.0); HEMOGLOBIN 12.1 g/dL (12.0-15.5); LYMPHOCYTES % (AUTO) 29.7 % (13-45); MEAN CORPUSCULAR HEMOGLOBIN 28.7 pg (27.0-33.4); MEAN CORPUSCULAR HGB CONC 34.6 g/dL (32.0-36.0); MEAN CORPUSCULAR VOLUME 83 fl (80-97); MONOCYTES % (AUTO) 6.1 % (3-13); PLATELET COUNT 253 10^3/uL (150-450); RED BLOOD COUNT 4.23 10^6/uL (3.72-5.28); RED CELL DISTRIBUTION WIDTH 13.5 % (11.5-14.0); SEGMENTED NEUTROPHILS % (AUTO) 61.1 % (42-78); TOTAL CELLS COUNTED % (AUTO) 100 %; WHITE BLOOD COUNT 6.7 10^3/uL (4.0-10.5)
[2019-05-19] MEDS ORDERED: IBUPROFEN 600 MG TABLET PO ONE (20:16)
[2019-05-19] MEDS ORDERED: ACETAMINOPHEN 325 MG TABLET PO ONE (20:16)
[2019-05-19 20:38] LABS: INTERNATIONAL RATION (INR) 1.01; PROTHROMBIN TIME 13.3 SEC (11.4-15.4)
--- NOTE | 2019-05-19 21:18 | ER Document Report ---
HPI - HPI Time Seen by Provider: 05/19/19 18:00 Pain Level: 3 Context: Patient is a 34-year-old female presents to the emergency department with a chief complaint of left lower leg pain. Patient reports this has been present for 1 month. Patient states she does have a history of DVT 18 years ago. Patient was told when she lived and [place] that she needed to be on anticoagulation for the rest of her life. Patient reports when she moved to the area a couple years ago she was told by her provider that she did not need to be on anticoagulation. Patient states she is not on any control, has had any long extensive car rides, or injury. Patient states she is concerned she may have a blood clot. Patient denies shortness of breath or chest pain. Patient states she is not diabetic. 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 - REPRODUCTIVE Reproductive: DENIES: : - MUSCULOSKELETAL Musculoskeletal: REPORTS: Extremity pain - L leg - DERM Skin Color: Normal Past Medical History - General Information source: Patient - Social History Smoking Status: Unknown if Ever Smoked Frequency of alcohol use: None Drug Abuse: None Lives with: Family Family History: Reviewed & Not Pertinent Patient has suicidal ideation: No Patient has homicidal ideation: No - Past Medical History Cardiac Medical History: Reports: Hx DVT Pulmonary Medical History: Reports: Hx Asthma EENT Medical History: Reports: None Neurological Medical History: Reports: None Endocrine Medical History: Reports: None Renal/ Medical History: Reports: None. Denies: Hx Peritoneal Dialysis Malignancy Medical History: Reports: None GI Medical History: Reports: None Musculoskeletal Medical History: Reports None Skin Medical History: Reports None Psychiatric Medical History: Reports: None Traumatic Medical History: Reports: None Infectious Medical History: Reports: None Past Surgical History: Reports: Hx Section - Immunizations Immunizations up to date: No Hx Diphtheria, Pertussis, Tetanus Vaccination: No Vertical Provider Document - CONSTITUTIONAL Agree With Documented VS: Yes Exam Limitations: No Limitations General Appearance: No Apparent Distress - INFECTION CONTROL TRAVEL OUTSIDE OF THE [place] IN LAST 30 DAYS: No - HEENT HEENT: Atraumatic, Normal ENT Exam, Normocephalic, PERRLA - NECK Neck: Normal Inspection - RESPIRATORY Respiratory: Breath Sounds Normal, No Respiratory Distress - CARDIOVASCULAR Cardiovascular: Regular Rate, Regular Rhythm - GI/ABDOMEN Gastrointestinal: Abdomen Soft, Abdomen Non-Tender, Normal Bowel Sounds - NEURO Level of Consciousness: Awake, Alert, Appropriate - DERM Integumentary: Warm Notes: Patient has an area of ecchymosis with some petechiae to the anterior left emerson. There is some acute tenderness to palpation over this area as well as mild tenderness to the posterior calf. There is minimal swelling noted to the left lower extremity when compared to the right. Course - Re-evaluation Re-evalutation: 05/19/19 21:13 Per the alignment technician the venous Doppler was unofficially negative. I did inform the patient that earlier the supervising physician Dr. Mcgill evaluated the wound as he thinks this is a burst varicose vein. There is a small amount of redness distal to the ecchymosis, this does track down the leg patient reports this is new as of today. I did tell the patient to elevate her lower extremities over the next few days as this can help with swelling. Patient needs to follow-up with her primary care physician at [facility] [place] [place] and return for any co ncerning signs or symptoms. 05/19/19 21:25 Upon reassessment patient reports that her dog did scratch her around the area of redness. There is a crusted black center. I will place the patient on oral antibiotics for the next 5 days such as Keflex. This is a prophylactic due to the dog scratch. Patient reports her dog's shots are up-to-date. - Vital Signs Vital signs: Temp Pulse Resp BP Pulse Ox 98.8 F 96 16 138/80 H 95 05/19/19 17:32 05/19/19 17:32 05/19/19 17:32 05/19/19 17:32 05/19/19 17:32 - Laboratory Result Diagrams: 05/19/19 19:58 Laboratory results interpreted by me: 05/19/19 19:58 Hct 35.1 L Discharge - Discharge Clinical Impression: Leg pain Qualifiers: Laterality: left Qualified Code(s): M79.605 - Pain in left leg Condition: Stable Disposition: HOME, SELF-CARE Additional Instructions: Today you are seen in the emergency department for left lower leg pain. At this time you do not have any evidence of a blood clot. I do not believe you need antibiotics as there is no signs of infection. You do need to follow-up with your primary care physician for reevaluation. If you are able please take a few days to elevate the lower extremities. Please take ibuprofen 800 mg as needed for pain or [id number] Tylenol. Please return to the emergency department if you have an increase in pain, swelling to the left lower extremity, shortness of breath, chest pain, increased discoloration of the left lower extremity, signs of infection to include fever, redness that starts to streak up or down the leg or any other concerning signs or symptoms. Prescriptions: Cephalexin Monohydrate [Keflex 500 mg Capsule] 500 mg PO BID 5 Days #10 capsule Ibuprofen [Motrin 800 mg Tablet] 800 mg PO Q8H PRN #30 tab PRN Reason: Forms: Return to Work
[2019-05-19 21:32] VITALS: BP 125/76
--- NOTE | 2019-05-19 23:01 | RADIOLOGY REPORT (SQ) ---
EXAM DESCRIPTION: US EXTREMITY VEINS UNILATERAL COMPLETED DATE/TME: 05/19/2019 18:46 CLINICAL HISTORY: 34 years, Female, pain out of proportion to exam, hx DVT COMPARISON: None. TECHNIQUE: Transverse and longitudinal sonographic images of the left lower extremity deep venous system LIMITATIONS: None. FINDINGS: No visible areas of thrombus. Normal compression and augmentation throughout. Doppler images are unremarkable IMPRESSION: Negative for DVT copyright 2010 [employer]- All Rights Reserved
== END 2019-05-19 21:33 | disposition home or self-care (01) ==
LOC: ER 17:15
DX: M79.605 Pain in left leg (principal); M79.662 Pain in left lower leg; Z86.718 Personal history of other venous thrombosis and embolism
CPT/HCPCS: 36415; 85025; 85610; 93971; 99284

== ENCOUNTER 2019-05-27 14:59 | Emergency (ER) | payer SELFPAY ==
--- NOTE | 2019-05-27 15:20 | ER Document Report ---
ED Medical Screen (RME) - General Chief Complaint: Leg Swelling Stated Complaint: LEG SWELLING/PAIN Time Seen by Provider: 05/27/19 15:12 Notes: Patient is a 34-year-old female presents emergency department with a chief complaint of left leg pain. Patient states that for total month and a half she has had left lower extremity redness and swelling. Patient states that over the past few weeks the redness has gotten worse. Patient states now she has a black necrotic looking [place] in the middle of her emerson. Patient states it has been draining some. Patient states she did take her oral antibiotics but does not seem to help. Patient denies fever. Patient states she is up on her feet a lot at work. TRAVEL OUTSIDE OF THE [place] IN LAST 30 DAYS: No - Related Data Allergies/Adverse Reactions: No Known Allergies Allergy (Verified 05/27/19 14:59) Past Medical History - Social History Frequency of alcohol use: None Drug Abuse: None Family history: Reviewed & Not Pertinent - Past Medical History Cardiac Medical History: Reports: Hx DVT Pulmonary Medical History: Reports: Hx Asthma Renal/ Medical History: Denies: Hx Peritoneal Dialysis Past Surgical History: Reports: Hx Section - Immunizations Immunizations up to date: No Hx Diphtheria, Pertussis, Tetanus Vaccination: No Physical Exam - Vital signs Vitals: Temp Pulse Resp BP Pulse Ox 98.3 F 73 20 142/92 H 98 05/27/19 15:07 05/27/19 15:07 05/27/19 15:07 05/27/19 15:07 05/27/19 15:07 - Extremities Notes: Patient has swelling noted to the left anterior emerson. There is a darkened circular center. Course - Re-evaluation Re-evalutation: 05/27/19 15:19 I did see the patient prescribed Keflex when she was seen here in the emergency department recently. Patient's left lower extremity does look different as there is a significant amount more redness and a necrotic looking center.. Patient states this is been ongoing for a month and a half but has never been this red or concerning looking. Patient's wound is concerning for possible MRSA infection. Will check basic labs. Patient would require a different type of antibiotic. I have greeted and performed a rapid initial assessment of this patient. A comprehensive ED assessment and evaluation of the patient, analysis of test results and completion of the medical decision making process will be conducted by additional ED providers. - Vital Signs Vital signs: Temp Pulse Resp BP Pulse Ox 98.3 F 73 20 142/92 H 98 05/27/19 15:07 05/27/19 15:07 05/27/19 15:07 05/27/19 15:07 05/27/19 15:07
[2019-05-27 15:59] LABS: ABSOLUTE EOSINOPHILS # (AUTO) 0.2 10^3/uL (0.0-0.6); ABSOLUTE MONOCYTES (AUTO) 0.4 10^3/uL (0.1-1.4); ABSOLUTE NEUT (AUTO) 3.6 10^3/uL (1.7-8.2); BASOPHILS % (AUTO) 0.5 % (0-2); HEMATOCRIT 35.1 % (36.0-47.0); HEMOGLOBIN 11.9 g/dL (12.0-15.5); LYMPHOCYTES % (AUTO) 32.3 % (13-45); MEAN CORPUSCULAR HEMOGLOBIN 28.5 pg (27.0-33.4); MEAN CORPUSCULAR HGB CONC 33.9 g/dL (32.0-36.0); MEAN CORPUSCULAR VOLUME 84 fl (80-97); MONOCYTES % (AUTO) 5.8 % (3-13); PLATELET COUNT 248 10^3/uL (150-450); RED BLOOD COUNT 4.17 10^6/uL (3.72-5.28); RED CELL DISTRIBUTION WIDTH 13.8 % (11.5-14.0); SEGMENTED NEUTROPHILS % (AUTO) 57.4 % (42-78); TOTAL CELLS COUNTED % (AUTO) 100 %; WHITE BLOOD COUNT 6.2 10^3/uL (4.0-10.5)
[2019-05-27 16:24] LABS: ALBUMIN 4.3 g/dL (3.5-5.0); ALKALINE PHOSPHATASE 58 U/L (38-126); ANION GAP 11 (5-19); ASPARTATE AMINO TRANSFERASE 20 U/L (14-36); BILIRUBIN,DIRECT 0.2 mg/dL (0.0-0.4); BILIRUBIN,TOTAL 0.4 mg/dL (0.2-1.3); BLOOD UREA NITROGEN 16 mg/dL (7-20); CALCIUM 9.5 mg/dL (8.4-10.2); CARBON DIOXIDE 26 mmol/L (22-30); CHLORIDE 102 mmol/L (98-107); GLUCOSE 98 mg/dL (75-110); POTASSIUM 4.3 mmol/L (3.6-5.0); TOTAL PROTEIN 7.4 g/dL (6.3-8.2)
--- NOTE | 2019-05-27 16:35 | ER Document Report ---
ED General - General Chief Complaint: Leg Swelling Stated Complaint: LEG SWELLING/PAIN Time Seen by Provider: 05/27/19 15:12 TRAVEL OUTSIDE OF THE [place] IN LAST 30 DAYS: No - HPI Notes: Patient is a 34-year-old female with no significant past medical history who presents complaining of a wound to her left anterior lower leg with what appears to be bruising around it that has been present for 1 month. She was seen a few days ago and was dx'd with a hematoma. She did get sent home on a short course of antibiotics as precautionary but did not notice any significant changes with it. Pt has associated soreness to the leg. She had a negative venous doppler at that time. No posterior pain. 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 Patient has had issues with swelling to her legs for a long time. Denies any headache, fever, URI, sore throat, chest pain, palpitations, syncope, cough, shortness of breath, wheeze, dyspnea, abdominal pain, nausea/vomiting/diarrhea, urinary retention, dysuria, hematuria, loss of control of bowel or bladder, numbness/tingling, saddle anesthesia, muscle paralysis/weakness, or rash. - Related Data Allergies/Adverse Reactions: No Known Allergies Allergy (Verified 05/27/19 14:59) Past Medical History - Social History Smoking Status: Never Smoker Frequency of alcohol use: None Drug Abuse: None Family History: Reviewed & Not Pertinent Patient has suicidal ideation: No Patient has homicidal ideation: No - Past Medical History Cardiac Medical History: Reports: Hx DVT Pulmonary Medical History: Reports: Hx Asthma Renal/ Medical History: Denies: Hx Peritoneal Dialysis Psychiatric Medical History: Reports: Hx Depression - and anxiety Past Surgical History: Reports: Hx Section - x 3 - Immunizations Immunizations up to date: No Hx Diphtheria, Pertussis, Tetanus Vaccination: No Review of Systems - Review of Systems -: Yes All other systems reviewed and negative Physical Exam - Vital signs Vitals: Temp Pulse Resp BP Pulse Ox 98.3 F 73 20 142/92 H 98 05/27/19 15:07 05/27/19 15:07 05/27/19 15:07 05/27/19 15:07 05/27/19 15:07 - Notes Notes: PHYSICAL EXAMINATION: GENERAL: Well-appearing, well-nourished and in no acute distress. LUNGS: Breath sounds clear to auscultation bilaterally and equal. No wheezes rales or rhonchi. HEART: Regular rate and rhythm without murmurs, rubs, gallops. Musculoskeletal: LE's b/l: FROM to passive/active. Strength 5+/5. No bony tenderness or calf tenderness. Extremities: b/l 1+ pitting edema noted. Peripheral pulses 2+. Capillary refill less than 3 seconds. NEUROLOGICAL: Normal speech, normal gait. Normal sensory, motor exams PSYCH: Normal mood, normal affect. SKIN: LLE: there is a hematoma noted to the anterior lower leg that does not frank and does have a slight opening to the skin approx 0.5cm. No purulence, fluctuance, or streaks noted. Pt does have varicose veins to the surrounding area as well. Course - Re-evaluation Re-evalutation: 05/27/19 16:50 Dr. Jos iglesias'd the patient as well who believes this to be hematoma and secondary to the edema. No signs of cellulitis or abscess. Patient is an afebrile, well-hydrated, 34-year-old female who presents to the ED with left leg pain and hematoma suspect secondary to her edema to the lower extremities. Vitals are acceptable without any significant tachycardia, tachypnea, or hypoxia. PE is otherwise unremarkable for any neurovascular compromise, obvious tendon/ligament rupture, obvious fracture/dislocation, septic joint. Patient had an unremarkable Doppler recently. Patient was given compression stockings. Wound dressing placed. Patient is nontoxic-appearing. Patient is able to ambulate and weight-bear. Lab work acceptable. No other labs or imaging warranted at this time based on H&P. Rx for lasix x3 days. Conservative measures otherwise for symptoms. Recheck with your PCM in 3-5 days. Consider consult wound clinic. Return to the ED with any worsening/concerning symptoms otherwise as reviewed in discharge. Patient is in agreement. - Vital Signs Vital signs: Temp Pulse Resp BP Pulse Ox 98.3 F 73 20 142/92 H 98 05/27/19 15:07 05/27/19 15:07 05/27/19 15:07 05/27/19 15:07 05/27/19 15:07 - Laboratory Result Diagrams: 05/27/19 15:24 05/27/19 15:24 Laboratory results interpreted by me: 05/27/19 15:24 Hgb 11.9 L Hct 35.1 L Discharge - Discharge Clinical Impression: Hematoma of left lower extremity Qualifiers: Encounter type: initial encounter Qualified Code(s): S80.12XA - Contusion of le ft lower leg, initial encounter Condition: Stable Disposition: HOME, SELF-CARE Additional Instructions: Rest, Ice, Compression, Elevation Use compression stockings daily when on your feet Tylenol/ibuprofen as needed Light stretches daily Strength exercises as able Keep the skin clean, wash with soap and water, use triple antibiotic ointment F/u with your PCP in 3-5 days for a recheck Schedule consult with wound clinic. Return to the ED with any worsening symptoms and/or development of fever, headache, chest pain, palpitations, syncope, shortness of breath, trouble breathing, abdominal pain, n/v/d, muscle weakness/paralysis, numbness/tingling, swelling, redness, or other worsening symptoms that are concerning to you. Prescriptions: Furosemide [Lasix 20 mg Tablet] 20 mg PO QAM #10 tablet Forms: Elevated Blood Pressure Referrals: Wound Care [Provider Group] - Follow up in 1 week
--- NOTE | 2019-05-27 16:44 | ER Document Report ---
Doctor's Note Notes: 05/27/19 16:42 Patient seen and conjunction with physician assistant professor of biochemistry, please see his note correlate with mine. In short this is a 34-year-old female who presents to the emergency department for evaluation of a lesion on her left anterior emerson and left lower extremity edema. Is been ongoing for some time. She denies any known injury. She states that the symptoms been present for about a month and progressively worsening. She denies any chest pain or shortness of breath. No family history of blood clots, no significant risk factors for any. On physical exam she has a moderate amount of edema to left lower extremity with extensive varicosities. There are not varicosities noted on the other side. This is an obese female with a BMI of 50. She has a 2 x 6 cm lesion consistent with a hematoma on the anterior emerson. There is a 1 cm area on the left central aspect of the lesion that is open without significant drainage or bleeding. No foreign body. My strong suspicion is that this is a hematoma, slowed and healing secondary to body habitus and venous insufficiency. She had already had a negative Doppler in the past. She has any risk factors for DVT. She does not have phlegmasia. She has no posterior calf tenderness. She is given wound care instructions in place and SHIRLEY hose. She is given instructions on diminishing edema, including weight loss. We will send her with a small amount of Lasix. She is to follow-up with primary care, return to the ED with worsening.
[2019-05-27 16:59] VITALS: BP 129/77
== END 2019-05-27 17:10 | disposition home or self-care (01) ==
LOC: ER 14:59
DX: S80.12XA Contusion of left lower leg, initial encounter (principal); M79.89 Other specified soft tissue disorders; M79.605 Pain in left leg; X58.XXXA Exposure to other specified factors, initial encounter
CPT/HCPCS: 36415; 80053; 85025; 99283

== ENCOUNTER 2019-08-12 16:25 | Emergency (ER) | payer SELFPAY ==
[2019-08-12] MEDS ORDERED: HYDROCODONE/ACETAMINOPHEN 5-325 MG TABLET PO ONE (16:53)
--- NOTE | 2019-08-12 16:56 | ER Document Report ---
ED Medical Screen (RME) - General Chief Complaint: Leg Pain Stated Complaint: LEG PAIN Time Seen by Provider: 08/12/19 16:47 Notes: Patient is a 34-year-old female who presents to the emergency department with a chief complaint of low wounds to her left anterior emerson. Patient states that she was seen here in the emergency department and has had venous Doppler studies done, which were negative. She states she has been putting triple antibiotic ointment on it, but is not getting any better. She has been taking ibuprofen and Tylenol, but has had little relief. Patient denies any fever, body aches, chills, or any other symptoms. Patient states that she was never placed on oral antibiotics. Exam: Unable to assess patient, due to patient wearing tight pants. Patient was able to show me a picture, it appears as a possible venous stasis ulcer. I have greeted and performed a rapid initial assessment of this patient. A comprehensive ED assessment and evaluation of the patient, analysis of test results and completion of medical decision making process will be conducted by an additional ED providers. TRAVEL OUTSIDE OF THE [place] IN LAST 30 DAYS: No - Related Data Allergies/Adverse Reactions: No Known Allergies Allergy (Verified 08/12/19 16:39) Past Medical History - Social History Chew tobacco use (# tins/day): No Frequency of alcohol use: None Drug Abuse: None Family history: Reviewed & Not Pertinent - Past Medical History Cardiac Medical History: Reports: Hx DVT Pulmonary Medical History: Reports: Hx Asthma Renal/ Medical History: Denies: Hx Peritoneal Dialysis Psychiatric Medical History: Reports: Hx Depression - and anxiety Past Surgical History: Reports: Hx Section - x 3 - Immunizations Immunizations up to date: No Hx Diphtheria, Pertussis, Tetanus Vaccination: No Physical Exam - Vital signs Vitals: Temp Pulse BP Pulse Ox 98.3 F 72 133/90 H 100 08/12/19 16:35 08/12/19 16:35 08/12/19 16:35 08/12/19 16:35 Course - Vital Signs Vital signs: Temp Pulse Resp BP Pulse Ox 98.3 F 72 133/90 H 100 08/12/19 16:35 08/12/19 16:35 08/12/19 16:35 08/12/19 16:35
[2019-08-12 17:29] LABS: ABSOLUTE EOSINOPHILS # (AUTO) 0.3 10^3/uL (0.0-0.6); ABSOLUTE LYMPHOCYTES (AUTO) 1.7 10^3/uL (0.5-4.7); ABSOLUTE MONOCYTES (AUTO) 0.4 10^3/uL (0.1-1.4); ABSOLUTE NEUT (AUTO) 3.9 10^3/uL (1.7-8.2); BASOPHILS % (AUTO) 0.7 % (0-2); EOSINOPHILS % (AUTO) 4.9 % (0-6); HEMATOCRIT 35.7 % (36.0-47.0); HEMOGLOBIN 12.2 g/dL (12.0-15.5); LYMPHOCYTES % (AUTO) 27.4 % (13-45); MEAN CORPUSCULAR HEMOGLOBIN 28.9 pg (27.0-33.4); MEAN CORPUSCULAR HGB CONC 34.1 g/dL (32.0-36.0); MEAN CORPUSCULAR VOLUME 85 fl (80-97); MONOCYTES % (AUTO) 5.8 % (3-13); PLATELET COUNT 280 10^3/uL (150-450); RED BLOOD COUNT 4.22 10^6/uL (3.72-5.28); RED CELL DISTRIBUTION WIDTH 14.2 % (11.5-14.0); SEGMENTED NEUTROPHILS % (AUTO) 61.2 % (42-78); TOTAL CELLS COUNTED % (AUTO) 100 %; WHITE BLOOD COUNT 6.4 10^3/uL (4.0-10.5)
[2019-08-12 17:47] LABS: ALBUMIN 4.1 g/dL (3.5-5.0); ALKALINE PHOSPHATASE 52 U/L (38-126); ANION GAP 10 (5-19); ASPARTATE AMINO TRANSFERASE 22 U/L (14-36); BILIRUBIN,DIRECT 0.1 mg/dL (0.0-0.4); BILIRUBIN,TOTAL 0.6 mg/dL (0.2-1.3); BLOOD UREA NITROGEN 11 mg/dL (7-20); CALCIUM 9.5 mg/dL (8.4-10.2); CARBON DIOXIDE 28 mmol/L (22-30); CHLORIDE 104 mmol/L (98-107); GLUCOSE 102 mg/dL (75-110); POTASSIUM 3.7 mmol/L (3.6-5.0); TOTAL PROTEIN 7.1 g/dL (6.3-8.2)
[2019-08-12] MEDS ORDERED: HYDROCODONE/ACETAMINOPHEN 5-325 MG (6 TAB/ER DISP) PO PRN (20:52)
--- NOTE | 2019-08-12 20:58 | ER Document Report ---
ED General - General Chief Complaint: Leg Pain Stated Complaint: LEG PAIN Time Seen by Provider: 08/12/19 16:47 TRAVEL OUTSIDE OF THE [place] IN LAST 30 DAYS: No - HPI Notes: Patient is a 34-year-old female presents emergency department for evaluation of a painful wound of her left leg. She states is been there for several weeks. She states she is been seen in the emergency department but has not followed up with anybody else. She states it seems to be getting worse. It hurts and itches, particularly at night. She states it has weeping fluid from it at times. She denies any fevers or chills, no nausea or vomiting. She is eating and drinking normally. She denies any other acute complaints or concerns. - Related Data Allergies/Adverse Reactions: No Known Allergies Allergy (Verified 08/12/19 16:39) Home Medications: Tylenol, ibuprofen as needed Past Medical History - General Information source: Patient - Social History Smoking Status: Current Some Day Smoker Chew tobacco use (# tins/day): No Frequency of alcohol use: None Drug Abuse: None Family History: Reviewed & Not Pertinent, Malignancy Patient has suicidal ideation: No Patient has homicidal ideation: No - Past Medical History Cardiac Medical History: Reports: Hx DVT Pulmonary Medical History: Reports: Hx Asthma Renal/ Medical History: Denies: Hx Peritoneal Dialysis Psychiatric Medical History: Reports: Hx Depression - and anxiety Past Surgical History: Reports: Hx Section - x 3 - Immunizations Immunizations up to date: No Hx Diphtheria, Pertussis, Tetanus Vaccination: No Review of Systems - Review of Systems Constitutional: No symptoms reported EENT: No symptoms reported Cardiovascular: No symptoms reported - I recognize the name cameron 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 Head is normocephalic, atraumatic. Pupils equal round, reactive to light. Neck is supple without meningismus. Heart is regular rate and rhythm. Lungs are clear to auscultation bilaterally. Abdomen is soft, nontender, normoactive bowel sounds throughout. Extremities without cyanosis, clubbing. Posterior calves are nontender. Peripheral pulses are equal. Examination of the skin yields an 8 cm area of nonblanching erythema with central ulceration, approximately 1 x 2 cm, consistent with a venous stasis ulcer. She does have some varicosities noted distal to this lesion. No significant calor or drainage noted at this time. No posterior calf tenderness. Peripheral pulses are equal. Course - Re-evaluation Re-evalutation: 08/12/19 20:56 Patient presents emergency department for evaluation. Her findings are most consistent with a venous stasis ulcer. I explained to the patient she needs to wear compression stockings. She states she wears them "a lot" but I told her she needs to wear the most of the time. She was educated on wound care as well. The patient does have some skin breakdown from her repeated bandaging. She was placed in a nonadherent bandage with gauze, then compression stockings. I explained to the patient that she needs to lose weight. She needs to keep her legs elevated. She needs to follow-up with primary care, and will be referred [facility] to [facility] or [facility]. She voiced understanding to this. I will send her home with a small amount of Vicodin the patient will be discharged. - Vital Signs Vital signs: Temp Pulse Resp BP Pulse Ox 98.3 F 72 133/90 H 100 08/12/19 16:35 08/12/19 16:35 08/12/19 16:35 08/12/19 16:35 - Laboratory Result Diagrams: 08/12/19 17:07 08/12/19 17:07 Laboratory results interpreted by me: 08/12/19 17:07 Hct 35.7 L RDW 14.2 H Discharge - Discharge Clinical Impression: Venous stasis ulcer Qualifiers: Venous stasis ulcer site: calf Varicose vein presence: with varicose veins Laterality: left Non-pressure ulcer stage: limited to breakdown of skin Qualified Code(s): I83.022 - Varicose veins of left lower extremity with ulcer of calf; L97.221 - Non-pressure chronic ulcer of left calf limited to breakdown of skin Condition: Stable Disposition: HOME, SELF-CARE Instructions: Foot or Leg Ulcer ([facility]) Additional Instructions: Keep wound clean and covered with nonadherent bandages. Wear compression stockings at all times when you are up with ambulation. Keep your leg elevated. You need to follow-up with primary care for further evaluation, you may require referral on to the wound clinic. Please see the [facility] or [facility] as soon as possible. Return to the ED if you develop fevers, increased pain, shortness of breath, or any other new concerning symptoms. Referrals: [facility] [NO [facility]AL MD] - Follow up as needed
[2019-08-12 21:27] VITALS: BP 139/86
== END 2019-08-12 21:43 | disposition home or self-care (01) ==
LOC: ER 16:25
DX: L97.221 Non-pressure chronic ulcer of left calf limited to breakdown of skin (principal); I83.022 Varicose veins of left lower extremity with ulcer of calf; M79.605 Pain in left leg; F17.200 Nicotine dependence, unspecified, uncomplicated; Z86.718 Personal history of other venous thrombosis and embolism
CPT/HCPCS: 36415; 80053; 85025; 87040; 99283

== ENCOUNTER 2019-08-23 17:47 | Emergency (ER) | payer SELFPAY ==
[2019-08-23 17:51] VITALS: BP 152/87
[2019-08-23] MEDS ORDERED: PREDNISONE 20 MG TABLET PO ONE (18:52)
[2019-08-23] MEDS ORDERED: FAMOTIDINE 20 MG TABLET PO ONE (18:52)
--- NOTE | 2019-08-23 18:53 | ER Document Report ---
ED Skin Rash/Insect Bite/Abscs - General Chief Complaint: Hives Stated Complaint: POSSIBLE RASH Time Seen by Provider: 08/23/19 18:46 Primary Care Provider: LAINA,GARY [Primary Care Provider] - Follow up as needed Mode of Arrival: Ambulatory Information source: Patient TRAVEL OUTSIDE OF THE [place] IN LAST 30 DAYS: No - HPI Patient complains to provider of: Skin rash/lesion Onset: Other - 3 days Onset/Duration: Gradual Severity: None Pain Level: Denies Skin Character: Urticarial Quality of rash: Itchy Identify cause: No Exacerbated by: Denies Relieved by: Denies Similar symptoms previously: Yes Recently seen / treated by doctor: No - Related Data Allergies/Adverse Reactions: No Known Allergies Allergy (Verified 08/23/19 18:43) Past Medical History - General Information source: Patient - Social History Smoking Status: Current Every Day Smoker Cigarette use (# per day): Yes - 2 cig Smoking Education Provided: Yes - 4 minutes Frequency of alcohol use: None Drug Abuse: None Lives with: Family Family History: Reviewed & Not Pertinent, Malignancy - Past Medical History Cardiac Medical History: Reports: Hx DVT Pulmonary Medical History: Reports: Hx Asthma EENT Medical History: Reports: None Neurological Medical History: Reports: None Endocrine Medical History: Reports: None Renal/ Medical History: Reports: None Malignancy Medical History: Reports: None GI Medical History: Reports: None Musculoskeletal Medical History: Reports None Skin Medical History: Reports None Psychiatric Medical History: Reports: Hx Anxiety, Hx Depression - and anxiety Traumatic Medical History: Reports: None Infectious Medical History: Reports: None Past Surgical History: Reports: Hx Section - x 3 - Immunizations Immunizations up to date: No Hx Diphtheria, Pertussis, Tetanus Vaccination: No Review of Systems - Review of Systems Constitutional: No symptoms reported EENT: No symptoms reported Cardiovascular: No symptoms reported Respiratory: No symptoms reported Gastrointestinal: No symptoms reported Genitourinary: No symptoms reported Female Genitourinary: No symptoms reported Musculoskeletal: No symptoms reported Skin: No symptoms reported Hematologic/Lymphatic: No symptoms reported Neurological/Psychological: No symptoms reported -: Yes All other systems reviewed and negative Physical Exam - Vital signs Vitals: Temp Pulse Resp BP Pulse Ox 97.9 F 90 20 152/87 H 98 08/23/19 17:51 08/23/19 17:51 08/23/19 17:51 08/23/19 17:51 08/23/19 17:51 Interpretation: Normal - General General appearance: Appears well, Alert - HEENT Head: Normocephalic, Atraumatic Eyes: Normal Pupils: PERRL - Respiratory Respiratory status: No respiratory distress Chest status: Nontender Breath sounds: Normal Chest palpation: Normal - Cardiovascular Rhythm: Regular Heart sounds: Normal auscultation Murmur: No - Abdominal Inspection: Normal Distension: No distension Bowel sounds: Normal Tenderness: Nontender Organomegaly: No organomegaly - Back Back: Normal, Nontender - Extremities General upper extremity: Normal inspection, Nontender, Normal color, Normal ROM, Normal temperature General lower extremity: Normal inspection, Nontender, Normal color, Normal ROM, Normal temperature, Normal weight bearing. No: Kristie's sign - Neurological Neuro grossly intact: Yes Cognition: Normal Orientation: AAOx4 [place] Coma Scale Eye Opening: Spontaneous [place] Coma Scale Verbal: Oriented [place] Coma Scale Motor: Obeys Commands Soni Coma Scale Total: 15 Speech: Normal Motor strength normal: LUE, RUE, LLE, RLE Sensory: Normal - Psychological Associated symptoms: Normal affect, Normal mood - Skin Skin Temperature: Warm Skin Moisture: Dry Skin Color: Normal Location of irregularity: Generalized Character of irregularity: Urticarial Irregularity with: Swelling, Tenderness Course - Vital Signs Vital signs: Temp Pulse Resp BP Pulse Ox 97.9 F 90 20 152/87 H 98 08/23/19 17:51 08/23/19 17:51 08/23/19 17:51 08/23/19 17:51 08/23/19 17:51 Discharge - Discharge Clinical Impression: Allergic urticaria Condition: Stable Disposition: HOME, SELF-CARE Instructions: Family Physicians / Practices Additional Instructions: ACUTE ALLERGIC REACTION: Your symptoms are due to an allergic reaction. Allergy can cause hives, swelling of the hands, feet, and face, hoarseness, and difficulty swallowing or breathing. It may be due to exposure to medication, animal dander, foods, infection, or insect bites. Medication is a common cause, even when prior use of this same medication caused no problems. Acute treatment may include adrenalin and antihistamines. Usually, the specific allergic agent can't be identified unless repeated episodes occur. Home treatment includes the following: (1) Stop any suspicious medications. This will be discussed with you. (2) Oral antihistamines for the next four to five days. Example, diphenhydramine (Benadryl) every four hours. (3) You may also use cimetidine (Tagamet), ranitidine (Zantac), or famotidine (Pepcid) every four hours if diphenhydramine is not controlling itching and hives. (4) Avoid aspirin until the hives completely disappear. (5) Avoid hot baths or showers until the hives are completely gone. Call the doctor if faintness, difficulty swallowing, tightness in the chest, or wheezing occurs. STEROID MEDICATION: You have been given a medicine of the cortisone/steroid class. This medication is used to control inflammation or allergy. It is usually only given for a short period of time, until the acute process subsides. There are usually no side effects from short-term use of cortisone-like medications. Some persons feel an increased sense of well-being and are not sleepy at bedtime. Long-term use of cortisone medications is best avoided, unless required for a severe condition. If your condition does not remit, or relapses after the course of corticosteroid medication, you should consult your physician. ACID-SUPPRESSING MEDICATION: You have a prescription for medicine which reduces the stomach's secretion of acid. Examples include Zantac, Tagament, and Pepcid. These drugs are often used to allow healing of ulcers or esophagitis. They may be needed to prevent recurrence of ulcers in some patients, or to prevent damage from acid reflux in the esophagus. Take all medication as prescribed, even after the pain is gone. Regular antacids may be added as needed if you have symptoms while taking this medicine. These medications sometimes are prescribed for allergic reactions because they have anti-histaminic effects and relieve the rash and itching of the reaction. There are usually no side effects from this medication. But, in rare cases and particularly in the elderly, serious problems can occur. Contact your doctor if there is fever, rash, hallucinations, confusion, or unusual bruising. Contact your doctor at once if you develop lightheadedness, black or bloody stool, or bloody vomitus. ANTIHISTAMINES: An antihistamine has been given and/or prescribed to control your symptoms. Antihistamines are used for many reasons, including itching, watering eyes, runny nose, allergic swelling, hives, and insect stings. Antihistamines may cause drowsiness, especially with the first dose. Do not operate machinery or drive while under the effects of the medication. Other common side effects include dry mouth and eyes. In older persons, antihistamines can occasionally cause urinary retention, constipation, and trouble focusing the eyes. Do not combine the medication with alcohol, or with any other medication without talking to your doctor. FOLLOW-UP CARE: If you have been referred to a physician for follow-up care, call the physicians office for an appointment as you were instructed or within the next two days. If you experience worsening or a significant change in your symptoms, notify the physician immediately or return to the Emergency Department at any time for re-evaluation. Prescriptions: Hydroxyzine Pamoate [Vistaril 50 mg Capsule] 50 mg PO QHS #7 capsule Prednisone [Deltasone 20 mg Tablet] 3 tab PO DAILY 5 Days tablet Famotidine [Pepcid 20 mg Tablet] 20 mg PO BID #12 tablet Forms: Elevated Blood Pressure, Smoking Cessation Education, Return to Work Referrals: LOCALMD,NO [Primary Care Provider] - Follow up as needed
== END 2019-08-23 19:09 | disposition home or self-care (01) ==
LOC: ER 17:47
DX: L50.0 Allergic urticaria (principal); F17.210 Nicotine dependence, cigarettes, uncomplicated; Z71.6 Tobacco abuse counseling; J45.909 Unspecified asthma, uncomplicated
CPT/HCPCS: 99406; 99282; J7512

== ENCOUNTER 2019-09-10 08:41 | Emergency (ER) | payer SELFPAY ==
[2019-09-10 09:03] VITALS: BP 145/91
--- NOTE | 2019-09-10 10:36 | ER Document Report ---
HPI - HPI Time Seen by Provider: 09/10/19 09:49 Pain Level: 2 Notes: 34-year-old female presents emergency room for reevaluation of rash that she was seen for previously in the emergency room. She was discharged home with prednisone and hydroxyzine for a dermatitis. She reports itching is worse at night, the steroids did help slightly however the rash did minimize a little but did come back after finishing steroid course. Patient states her last menstrual period was in July, is unsure if she is . Denies fevers, chills, chest pain,palpitations, shortness of breath, dyspnea, nausea, vomiting, diarrhea, abdominal pain, hematuria,blurred vision, double vision, loss of vision, speech changes, LH, dizziness, syncope, headaches, wheezing, weakness, numbness or tingling in bilateral upper or lower extremities equally, muscle paralysis, weakness in bilateral upper or lower extremities equally or rash. - REPRODUCTIVE Reproductive: DENIES: : Past Medical History - General Information source: Patient - Social History Smoking Status: Current Every Day Smoker Chew tobacco use (# tins/day): No Frequency of alcohol use: None Drug Abuse: None Family History: Reviewed & Not Pertinent, Malignancy Patient has suicidal ideation: No Patient has homicidal ideation: No - Past Medical History Cardiac Medical History: Reports: Hx DVT Pulmonary Medical History: Reports: Hx Asthma Psychiatric Medical History: Reports: Hx Anxiety, Hx Depression - and anxiety Past Surgical History: Reports: Hx Section - x 3 - Immunizations Immunizations up to date: No Hx Diphtheria, Pertussis, Tetanus Vaccination: No Vertical Provider Document - CONSTITUTIONAL Agree With Documented VS: Yes Exam Limitations: No Limitations General Appearance: WD/WN Notes: PHYSICAL EXAMINATION: reviewed vital signs by RN GENERAL: Well-appearing, well-nourished and in no acute distress. HEAD: Atraumatic, normocephalic. EYES: Pupils equal round and reactive to light, extraocular movements intact, conjunctiva are normal. ENT: Nares patent, oropharynx clear without exudates. Moist mucous membranes. NECK: Normal range of motion, supple without lymphadenopathy LUNGS: Breath sounds clear to auscultation bilaterally and equal. No wheezes rales or rhonchi. HEART: Regular rate and rhythm without murmurs ABDOMEN: Soft, nontender, nondistended abdomen. No guarding, no rebound. No masses appreciated. Female : deferred Musculoskeletal: Normal range of motion, no pitting or edema. No cyanosis. NEUROLOGICAL: Cranial nerves grossly intact. Normal speech, normal gait. Normal sensory, motor exams PSYCH: Normal mood, normal affect. SKIN: Warm, Dry, normal turgor, no rashes or lesions noted. Noted linear patterns with bruising on bilateral forearms, no induration swelling or warmth to touch. No open wounds drainage. Radial pulses +2 bilaterally and equally - INFECTION CONTROL TRAVEL OUTSIDE OF THE [place] IN LAST 30 DAYS: No Course - Re-evaluation Re-evalutation: 09/10/19 11:50 Urine negative because patient did not know when her last menstrual period was. Nurse's notes reviewed. Vitals stable, afebrile. Patient prescribed permethrin cream to apply from head to toe for 8 to 12 hours advised to buy to take care of her bedding at home and other personal garments. After performing a Medical Screening Examination, I estimate there is LOW risk for any life threatening rash. At this time the patient looks extremely well and there are no signs of systemic infection, however this may change at any time and the rash may change. I have reevaluated this patient multiple times and no significant life threatening changes are noted. The patient and I have discussed the diagnosis and risks, and we agree with discharging home with close follow-up with the understanding that symptoms and presentations can change. We also discussed returning to the Emergency Department immediately if new or worsening symptoms occur. We have discussed the symptoms which are most concerning (e.g., changing or worsening pain, fever, numbness, weakness, cool or painful digits) that necessitate immediate return. - Vital Signs Vital signs: Temp Pulse Resp BP Pulse Ox 98.6 F 65 16 145/91 H 99 09/10/19 09:40 09/10/19 09:01 09/10/19 09:40 09/10/19 09:01 09/10/19 09:40 Discharge - Discharge Clinical Impression: Scabies exposure, Pruritus Condition: Stable Disposition: HOME, SELF-CARE Instructions: Itching, Nonspecific ([facility]), Scabies ([facility]) Additional Instructions: Scabies Your exam suggests the presence of scabies, which are microscopic parasites of the skin. These mites brittnee through the skin, causing severe itching. The mite can be spread to other persons by skin contact. All clothing, towels, and bedding should be washed in very hot water, set aside for a week, then washed again. You should apply scabies-killing lotion from the neck down, then wash it off after 12 hours. You may need medication for itching, as the itch persists for many days after the mites have been killed. All family members and close personal contacts should be examined. Repeat treatment may be necessary if the infestation is not eliminated with a single treatment. Call the doctor if you develop increasing swelling and redness, red streaks, tender lumps, fever, or drainage from a skin sore. Take medication as directed. Follow-up with your primary care provider if symptoms become worse. Return immediately for any new or worsening symptoms. Follow up with primary care provider, call tomorrow to make followup appointment. Prescriptions: Hydroxyzine Pamoate [Vistaril 50 mg Capsule] 50 mg PO QHS #7 capsule Prednisone [Deltasone 20 mg Tablet] 3 tab PO DAILY 5 Days #15 tablet Permethrin [Nix 1% Lotion 59 ml] 1 applic TP ONCE PRN #1 bottle PRN Reason: Referrals: LOCAL,NO [NO LOCAL MD] - Follow up as needed GREGORIO NASH MD [COMMUNITY BASED STAFF] - Follow up as needed
== END 2019-09-10 11:42 | disposition home or self-care (01) ==
LOC: ER 08:41
DX: L29.9 Pruritus, unspecified (principal); R21 Rash and other nonspecific skin eruption; F17.200 Nicotine dependence, unspecified, uncomplicated; Z86.718 Personal history of other venous thrombosis and embolism
CPT/HCPCS: 81025; 99283

== ENCOUNTER 2019-12-01 20:06 | Emergency (ER) | payer SELFPAY ==
--- NOTE | 2019-12-01 21:09 | ER Document Report ---
ED Medical Screen (RME) - General Chief Complaint: Leg Pain Stated Complaint: LEFT LEG SWOLLEN/PAIN,BODY RASH Time Seen by Provider: 12/01/19 21:04 Mode of Arrival: Ambulatory Information source: Patient Notes: This 34-year-old female presents to the emergency department with open wound and irritation to the left lower extremity. Patient reports it started months ago. She thought it was ringworm and the wound became larger and opened up. She reports she has been here several times for this and they told her to wear compression stockings. She reports she is done this without relief of symptoms. She reports she is taken Advil for the pain without relief of pain. Denies fever vomiting diarrhea. Denies history of diabetes. Patient has good pedal pulse +3 cap refill less than 2 seconds. I have greeted and performed a rapid initial assessment of this patient. A comprehensive ED assessment and evaluation of the patient, analysis of test results and completion of the medical decision making process will be conducted by additional ED providers. TRAVEL OUTSIDE OF THE [place] IN LAST 30 DAYS: No - Related Data Allergies/Adverse Reactions: No Known Allergies Allergy (Verified 12/01/19 20:59) Past Medical History - Social History Frequency of alcohol use: None Drug Abuse: None Family history: Reviewed & Not Pertinent - Past Medical History Cardiac Medical History: Reports: Hx DVT Pulmonary Medical History: Reports: Hx Asthma Psychiatric Medical History: Reports: Hx Anxiety, Hx Depression - and anxiety Past Surgical History: Reports: Hx Section - x 3 - Immunizations Immunizations up to date: No Hx Diphtheria, Pertussis, Tetanus Vaccination: No Physical Exam - Vital signs Vitals: Temp Pulse Resp BP Pulse Ox 98.1 F 82 20 131/91 H 97 12/01/19 20:20 12/01/19 20:20 12/01/19 20:20 12/01/19 20:20 12/01/19 20:20 Course - Vital Signs Vital signs: Temp Pulse Resp BP Pulse Ox 98.1 F 82 20 131/91 H 97 12/01/19 20:20 12/01/19 20:20 12/01/19 20:20 12/01/19 20:20 12/01/19 20:20
[2019-12-01 21:29] LABS: ABSOLUTE EOSINOPHILS # (AUTO) 0.4 10^3/uL (0.0-0.6); ABSOLUTE LYMPHOCYTES (AUTO) 2.6 10^3/uL (0.5-4.7); ABSOLUTE MONOCYTES (AUTO) 0.5 10^3/uL (0.1-1.4); ABSOLUTE NEUT (AUTO) 4.7 10^3/uL (1.7-8.2); BASOPHILS % (AUTO) 0.5 % (0-2); EOSINOPHILS % (AUTO) 5.1 % (0-6); HEMATOCRIT 35.4 % (36.0-47.0); HEMOGLOBIN 12.2 g/dL (12.0-15.5); LYMPHOCYTES % (AUTO) 31.2 % (13-45); MEAN CORPUSCULAR HEMOGLOBIN 29.2 pg (27.0-33.4); MEAN CORPUSCULAR HGB CONC 34.6 g/dL (32.0-36.0); MEAN CORPUSCULAR VOLUME 85 fl (80-97); MONOCYTES % (AUTO) 5.6 % (3-13); PLATELET COUNT 296 10^3/uL (150-450); RED BLOOD COUNT 4.19 10^6/uL (3.72-5.28); RED CELL DISTRIBUTION WIDTH 13.4 % (11.5-14.0); SEGMENTED NEUTROPHILS % (AUTO) 57.6 % (42-78); TOTAL CELLS COUNTED % (AUTO) 100 %; WHITE BLOOD COUNT 8.2 10^3/uL (4.0-10.5)
[2019-12-01 21:38] LABS: APPEARANCE,URINE SLIGHTLY-CLOUDY; BILIRUBIN,URINE NEGATIVE (NEGATIVE); COLOR,URINE YELLOW; GLUCOSE, URINE NEGATIVE (NEGATIVE); KETONES,URINE NEGATIVE (NEGATIVE); LEUKOCYTE ESTERASE,URINE TRACE (NEGATIVE); NITRITE,URINE NEGATIVE (NEGATIVE); PROTEIN,URINE NEGATIVE (NEGATIVE); URINE SPECIFIC GRAVITY 1.029
[2019-12-01 21:47] LABS: ALBUMIN 4.3 g/dL (3.5-5.0); ALKALINE PHOSPHATASE 56 U/L (38-126); ANION GAP 9 (5-19); ASPARTATE AMINO TRANSFERASE 20 U/L (14-36); BILIRUBIN,DIRECT 0.3 mg/dL (0.0-0.4); BILIRUBIN,TOTAL 0.5 mg/dL (0.2-1.3); BLOOD UREA NITROGEN 17 mg/dL (7-20); CALCIUM 9.7 mg/dL (8.4-10.2); CARBON DIOXIDE 29 mmol/L (22-30); CHLORIDE 103 mmol/L (98-107); GLUCOSE 94 mg/dL (75-110); POTASSIUM 4.1 mmol/L (3.6-5.0); TOTAL PROTEIN 7.6 g/dL (6.3-8.2)
[2019-12-02] MEDS ORDERED: SILVER SULFADIAZINE 1% CREAM 50 GM TP ONE (00:30)
[2019-12-02] MEDS ORDERED: SULFAMETHOXAZOLE/TRIMETHOPRIM 800-160 MG TABLET PO ONE (00:31)
[2019-12-02] MEDS ORDERED: NAPROXEN 250 MG TABLET PO ONE (00:31)
--- NOTE | 2019-12-02 00:32 | ER Document Report ---
ED Extremity Problem, Lower - General Chief Complaint: Leg Pain Stated Complaint: LEFT LEG SWOLLEN/PAIN,BODY RASH Time Seen by Provider: 12/01/19 21:04 Mode of Arrival: Ambulatory Notes: 34-year-old woman presents to the emergency department with a complaint of left lower leg ulcer which is been ongoing for greater than a month. She states that the area has not healed and has continued to give her pain. She denies fever, history of diabetes mellitus, or injury. TRAVEL OUTSIDE OF THE [place] IN LAST 30 DAYS: No - Related Data Allergies/Adverse Reactions: No Known Allergies Allergy (Verified 12/01/19 20:59) Past Medical History - General Information source: Patient - Social History Smoking Status: Current Some Day Smoker Frequency of alcohol use: None Drug Abuse: None Family History: Reviewed & Not Pertinent, Malignancy Patient has suicidal ideation: No Patient has homicidal ideation: No - Past Medical History Cardiac Medical History: Reports: Hx DVT Pulmonary Medical History: Reports: Hx Asthma Psychiatric Medical History: Reports: Hx Anxiety, Hx Depression - and anxiety Past Surgical History: Reports: Hx Section - x 3 - Immunizations Immunizations up to date: No Hx Diphtheria, Pertussis, Tetanus Vaccination: No Review of Systems - Review of Systems Notes: Constitutional: Negative for fever. HENT: Negative for sore throat. Eyes: Negative for visual changes. Cardiovascular: Negative for chest pain. Respiratory: Negative for shortness of breath. Gastrointestinal: Negative for abdominal pain, vomiting or diarrhea. Genitourinary: Negative for dysuria. Musculoskeletal: Negative for back pain. Skin: + Left leg ulcer Neurological: Negative for headaches, weakness or numbness. 10 point ROS negative except as marked above and in HPI. Physical Exam - Vital signs Vitals: Temp Pulse Resp BP Pulse Ox 98.1 F 82 20 131/91 H 97 12/01/19 20:20 12/01/19 20:20 12/01/19 20:20 12/01/19 20:20 12/01/19 20:20 - Notes Notes: PHYSICAL EXAMINATION: Physical Exam: General: Well-nourished well-developed 34-year-old woman in no acute distress HEENT: NC/AT, pupils equal round and reactive to light, MM moist,nares clear, oropharynx clear, airway patent Neck: supple, no adenopathy, no masses. Good range of motion Lungs: clear, no wheezing, no rales no rhonchi CVS: Regular rate and rhythm no murmur gallop or rub Abdomen: Soft, active, nontender, no masses, no hepatosplenomegaly Ext: No edema, clubbing or cyanosis. Neuro: Alert and responsive, moving all 4 extremities on command, cranial nerves intact, no focal findings Skin: Left leg with a skin ulcer in the mid tib-fib and surrounding mild erythema and no acute drainage. PSYCH: Normal mood, normal affect. Course - Re-evaluation Re-evalutation: 12/02/19 00:27 Discussed with the patient that this appears to be a venous stasis ulcer we will put her on antibiotic, began a topical treatment and refer her for follow-up at [facility]. - Vital Signs Vital signs: Temp Pulse Resp BP Pulse Ox 98.1 F 82 20 131/91 H 97 12/01/19 20:20 12/01/19 20:20 12/01/19 20:20 12/01/19 20:20 12/01/19 20:20 - Laboratory Result Diagrams: 12/01/19 21:10 12/01/19 21:10 Laboratory results interpreted by me: 12/01/19 12/01/19 21:10 21:10 Hct 35.4 L Urine Urobilinogen 4.0 H Ur Leukocyte Esterase TRACE H 12/02/19 00:28 I have reviewed laboratory data and used this information for the treatment decisions regarding the patient. - Diagnostic Test Radiology reviewed: Image reviewed, Reports reviewed - Left leg Doppler: No DVT Discharge - Discharge Clinical Impression: Stasis ulcer of left lower extremity Condition: Good Disposition: HOME, SELF-CARE Instructions: Foot or Leg Ulcer ([facility]) Additional Instructions: You were diagnosed with a venous stasis ulcer of the right leg tonight. Please use the cream and dressing changes daily, take the antibiotic and anti- inflammatory as prescribed, follow-up with the outpatient clinic. HOME CARE INSTRUCTIONS & INFORMATION: Thank you for choosing us for your medical needs. We hope you're satisfied with the care you received. After you leave, you must properly care for your problem and, at the same time, observe its progress. Any condition can change. Some illnesses can change rapidly over hours or days. If your condition worsens, return to the Emergency Department or see your physician promptly. ABOUT YOUR X-RAYS AND EKG'S: If you had an EKG or X-rays taken, they have been read by the Emergency Physician. The X-rays and EKG's will also be read by a Radiologist or Financial Operations Consultant within 24 hours. If discrepancies are noted, you will be notified by telephone. Please be certain the ED has a correct telephone number & address where you can be reached. Also, realize that some fractures or abnormalities do not show up on initial X-rays. If your symptoms continue, see your physician. ABOUT YOUR LABORATORY TEST: If you had laboratory tests, the results have been reviewed by the Emergency Physician. Some test results (for example cultures) may not be available for several days. You will be contacted if any test result shows you need additional treatment. Please be certain the ED has a correct telephone number and address where you can be reached. ABOUT YOUR MEDICATIONS: You will receive instructions on how to take your medicine on the prescription label you receive. Additional information may be provided by the Pharmacy. If you have questions afterwards, call the ED for clarification or further instructions. Some prescribed medications may cause drowsiness. Do not perform tasks such as driving a car or operating machinery without consulting your Pharmacist. If you feel you need a refill of pain medication, your condition will need re-evaluation. Please do not call for a refill of any medication. ABOUT YOUR SIGNATURE: Signature of this document acknowledges to followin. Understanding that you received emergency treatment and that you may be released before al medical problems are known or treated. Please be certain the ED has a correct phone number & address where you can be reached. 2. Acknowledgement that you will arrange for follow-up care as recommended. 3. Authorization for the Emergency Physician to provide information to your follow-up Physician in order to maximize your care. AT ANY TIME, IF YOUR SYMPTOMS CHANGE SIGNIFICANTLY OR WORSEN OR YOU DEVELOP NEW SYMPTOMS, RETURN TO THE EMERGENCY DEPARTMENT IMMEDIATELY FOR RE-EVALUATION. OUR GOAL IS TO PROVIDE EXCELLENT MEDICAL CARE! WE HOPE THAT WE HAVE MET YOUR EXPECTATIONS DURING YOUR EMERGENCY DEPARTMENT VISIT AND THAT YOU FEEL YOU HAVE RECEIVED EXCELLENT CARE! Prescriptions: Sulfamethoxazole/Trimethoprim [Bactrim Ds Tablet] 1 tab PO BID #20 tablet Naproxen [Naprosyn] 500 mg PO BID #20 tablet Triamcinolone Acetonide 15 gm TP BID #10 oint...g.
[2019-12-02] MEDS ORDERED: SILVER SULFADIAZINE 1% CREAM 50 GM ONE (00:58)
[2019-12-02 01:23] VITALS: BP 142/119
--- NOTE | 2019-12-02 09:58 | XCELERA REPORT ---
[address] [place] [facility] [id number] Lower Extremity Venous Evaluation Procedure: Color flow and duplex imaging of the veins of the left lower extremity as well as the left Common Femoral vein. Right Sided Venous Evaluation The right common femoral vein is fully compressible. Spontaneous and phasic flow is present in the right common femoral vein. Left Sided Venous Evaluation Normal vessel filling wall to wall, compression and augmentation as well as Colour flow down to the infrageniculate veins. Interpretation Summary No duplex evidence of DVT or obstruction in the left lower extremity nor in the right Common Femoral vein. Name: CRISTEL LEMUS Age: 34 yrs Gender: Female : 1985 Patient Status: Emergency Patient Location: ER Study Date: 12/01/2019 10:26 PM Reason For Study: LLL pain Ordering Physician: BRIE CONSTANTINO Performed By: Real Pina : BRIE CONSTANTINO > Fritz Michael
== END 2019-12-02 01:23 | disposition home or self-care (01) ==
LOC: ER 20:06
DX: I87.2 Venous insufficiency (chronic) (peripheral) (principal); M79.662 Pain in left lower leg; F17.200 Nicotine dependence, unspecified, uncomplicated; J45.909 Unspecified asthma, uncomplicated; Z86.718 Personal history of other venous thrombosis and embolism
CPT/HCPCS: 99284; 36415; 85025; 81025; 80053; 81001; 93971 ×2; J3490

== ENCOUNTER → 2020-01-01 | Outpatient (CLI) | payer MEDICAID ==
--- NOTE | 2020-01-01 13:11 | RADIOLOGY REPORT (SQ) ---
EXAM DESCRIPTION: VENOUS REFLUX IMAGES COMPLETED DATE/TIME: 01/01/2020 12:55 pm REASON FOR STUDY: LT CALF ULCER L97.222 NON-PRESSURE CHRONIC ULCER OF LEFT CALF W FAT LAYER COMPARISON: None. TECHNIQUE: Multiple real-time grayscale sonographic images were obtained for evaluation of the right and left lower extremity. Doppler and duplex evaluation of the venous structures was performed. LIMITATIONS: None. FINDINGS: The right and left common femoral, superficial femoral, popliteal and infrapopliteal veins are patent with normal response to compression and augmentation maneuvers. Right greater saphenous vein: Normal in caliber. No reflux. Right small saphenous vein: Normal in caliber. No reflux. Left greater saphenous vein: Normal in caliber. No reflux. Left small saphenous vein: Normal in caliber. No reflux. OTHER: No solid or cystic masses or other abnormal findings. IMPRESSION: 1. No evidence of DVT or SVT. 2. No significant venous insufficiency. TECHNICAL DOCUMENTATION: JOB ID: [id number] 2010 [employer]- All Rights Reserved Reading location - IP/workstation name: [email or web address]
--- NOTE | 2020-01-01 13:13 | RADIOLOGY REPORT (SQ) ---
EXAM DESCRIPTION: ARTERIAL LOWER EXTREM BILAT; PHYSIO ARTERIAL LTD IMAGES COMPLETED DATE/TIME: 01/01/2020 12:55 pm REASON FOR STUDY: LT CALF ULCER L97.222 NON-PRESSURE CHRONIC ULCER OF LEFT CALF W FAT LAYER COMPARISON: None. TECHNIQUE: Dynamic and static villalba scale and color images acquired of the lower extremity arteries. Additional selected spectral images recorded. ABIs recorded. LIMITATIONS: None. FINDINGS: RIGHT LEG: ABIS: Normal, over 1.0. INFLOW ARTERIES: Normal, no obstruction evident. FEMORAL ARTERIES:Multiphasic waveforms. Normal, no velocity elevation to suggest focal stenosis. Norm al color Doppler evaluation. No aneurysm. POPLITEAL ARTERY:Multiphasic waveforms. Normal, no velocity elevation to suggest focal stenosis. Norm al color Doppler evaluation. No aneurysm. PATENT TIBIOPERONEAL TRUNK AND 3 VESSEL RUNOFF: Tibioperoneal trunk and peroneal artery are not demon strated. Widely patent anterior tibial and posterior tibial arteries. Waveforms are multiphasic. TBI: Not performed. OTHER: No other significant finding. LEFT LEG: ABIS: Normal, over 1.0. INFLOW ARTERIES: Normal, no obstruction evident. FEMORAL ARTERIES:Multiphasic waveforms. Normal, no velocity elevation to suggest focal stenosis. Norm al color Doppler evaluation. No aneurysm. POPLITEAL ARTERY:Multiphasic waveforms. Normal, no velocity elevation to suggest focal stenosis. Norm al color Doppler evaluation. No aneurysm. PATENT TIBIOPERONEAL TRUNK AND 3 VESSEL RUNOFF: Tibioperoneal trunk not imaged. Widely patent anteri or tibial and posterior tibial artery. Waveforms are multiphasic. TBI: Not performed. OTHER: No other significant finding. IMPRESSION: NORMAL BILATERAL LOWER EXTREMITY ARTERIAL DOPPLER WITH ABIs. COMMENT: [facility] NORMAL: Greater than 1.0 MINIMAL DISEASE: 0.9 to 1.0 CLAUDICATION: 0.5 to 0.9 SEVERE ARTERIAL DISEASE: Less than 0.5 [facility] NORMAL: Greater than 1.0 (1.2 If Heavy Calcifications) NORMAL TO MILD ISCHEMIA: 0.8 to 1.0 MODERATE ISCHEMIA: 0.4 to 0.8 SEVERE ISCHEMIA: Less than 0.4 TECHNICAL DOCUMENTATION: JOB ID: [id number] 2010 [employer]- All Rights Reserved Reading location - IP/workstation name: [email or web address]
--- NOTE | 2020-01-01 13:13 | RADIOLOGY REPORT (SQ) ---
EXAM DESCRIPTION: ARTERIAL LOWER EXTREM BILAT; PHYSIO ARTERIAL LTD IMAGES COMPLETED DATE/TIME: 01/01/2020 12:55 pm REASON FOR STUDY: LT CALF ULCER L97.222 NON-PRESSURE CHRONIC ULCER OF LEFT CALF W FAT LAYER COMPARISON: None. TECHNIQUE: Dynamic and static villalba scale and color images acquired of the lower extremity arteries. Additional selected spectral images recorded. ABIs recorded. LIMITATIONS: None. FINDINGS: RIGHT LEG: ABIS: Normal, over 1.0. INFLOW ARTERIES: Normal, no obstruction evident. FEMORAL ARTERIES:Multiphasic waveforms. Normal, no velocity elevation to suggest focal stenosis. Norm al color Doppler evaluation. No aneurysm. POPLITEAL ARTERY:Multiphasic waveforms. Normal, no velocity elevation to suggest focal stenosis. Norm al color Doppler evaluation. No aneurysm. PATENT TIBIOPERONEAL TRUNK AND 3 VESSEL RUNOFF: Tibioperoneal trunk and peroneal artery are not demon strated. Widely patent anterior tibial and posterior tibial arteries. Waveforms are multiphasic. TBI: Not performed. OTHER: No other significant finding. LEFT LEG: ABIS: Normal, over 1.0. INFLOW ARTERIES: Normal, no obstruction evident. FEMORAL ARTERIES:Multiphasic waveforms. Normal, no velocity elevation to suggest focal stenosis. Norm al color Doppler evaluation. No aneurysm. POPLITEAL ARTERY:Multiphasic waveforms. Normal, no velocity elevation to suggest focal stenosis. Norm al color Doppler evaluation. No aneurysm. PATENT TIBIOPERONEAL TRUNK AND 3 VESSEL RUNOFF: Tibioperoneal trunk not imaged. Widely patent anteri or tibial and posterior tibial artery. Waveforms are multiphasic. TBI: Not performed. OTHER: No other significant finding. IMPRESSION: NORMAL BILATERAL LOWER EXTREMITY ARTERIAL DOPPLER WITH ABIs. COMMENT: [facility] NORMAL: Greater than 1.0 MINIMAL DISEASE: 0.9 to 1.0 CLAUDICATION: 0.5 to 0.9 SEVERE ARTERIAL DISEASE: Less than 0.5 [facility] NORMAL: Greater than 1.0 (1.2 If Heavy Calcifications) NORMAL TO MILD ISCHEMIA: 0.8 to 1.0 MODERATE ISCHEMIA: 0.4 to 0.8 SEVERE ISCHEMIA: Less than 0.4 TECHNICAL DOCUMENTATION: JOB ID: [id number] 2010 [employer]- All Rights Reserved Reading location - IP/workstation name: [email or web address]
== END ==
LOC: RAD 10:10
PROVIDERS: ATTEND Nurse Practitioner Family
DX: L97.222 Non-pressure chronic ulcer of left calf with fat layer exposed (principal)
CPT/HCPCS: 93922; 93925; 93970

== ENCOUNTER 2020-08-08 09:40 | Emergency (ER) | payer MEDICAID ==
--- NOTE | 2020-08-08 11:00 | ER Document Report ---
ED General - General Chief Complaint: Vaginal Bleeding Stated Complaint: ABDOMINAL PAIN, BACK PAIN Time Seen by Provider: 08/08/20 10:57 Primary Care Provider: CHICO MENEZES MD [ACTIVE PROVISIONAL STAFF] - 08/10/20 COLLIN MCKNIGHT NP [Primary Care Provider] - Follow up as needed TRAVEL OUTSIDE OF THE [place] IN LAST 30 DAYS: No - HPI Notes: 35-year-old G3, P5 last menstrual cycle 06/06/2020 female presents to the emergency room today with right lower quadrant abdominal pain that radiates to her back for the last 2 weeks as well as vaginal bleeding that started 5 days ago, she states she is going through 5 pads a day. Patient states that she missed her menstrual cycle in June 2020. Patient is not on control, she did not take a test when she missed her menstrual cycle in June. Patient did have surgery on her left knee on August 04 in [place] on the posterior aspect of her knee, she states they did a test that day and it was negative. Patient reports she has not had an appendectomy or cholecystectomy. reports pain is stabbing and throbbing. Has not seen her primary care provider for this issue. Patient states her left knee surgery is unrelated to her right lower quadrant abdominal pain and vaginal bleeding. Denies any illicit drug use. - Related Data Allergies/Adverse Reactions: No Known Allergies Allergy (Verified 12/01/19 20:59) Home Medications: hydrocodone, lisinopril, Hydralazine Past Medical History - General Information source: Patient Last Menstrual Period: 05/26/2020 - Social History Smoking Status: Former Smoker Frequency of alcohol use: None Drug Abuse: None Family History: Reviewed & Not Pertinent, Malignancy - Past Medical History Cardiac Medical History: Reports: Hx DVT Pulmonary Medical History: Reports: Hx Asthma Psychiatric Medical History: Reports: Hx Anxiety, Hx Depression - and anxiety Past Surgical History: Reports: Hx Section - x 3 - Immunizations Immunizations up to date: No Hx Diphtheria, Pertussis, Tetanus Vaccination: No Review of Systems - Review of Systems Constitutional: No symptoms reported EENT: No symptoms reported Cardiovascular: No symptoms reported Respiratory: No symptoms reported Gastrointestinal: See HPI Genitourinary: No symptoms reported Female Genitourinary: See HPI Musculoskeletal: No symptoms reported Skin: No symptoms reported Hematologic/Lymphatic: No symptoms reported Neurological/Psychological: No symptoms reported Physical Exam - Vital signs Vitals: Temp Pulse Resp BP Pulse Ox 97.4 F 73 16 139/90 H 98 08/08/20 09:53 08/08/20 09:53 08/08/20 09:53 08/08/20 09:53 08/08/20 09:53 - Notes Notes: MEDICATIONS: I agree with the patient medications as charted by the RN. ALLERGIES: I agree with the allergies as charted by the RN. PAST MEDICAL HISTORY/PAST SURGICAL HISTORY: Reviewed and agree as charted by RN. SOCIAL HISTORY: Reviewed and agree as charted by RN. FAMILY HISTORY: No significant familial comorbid conditions directly related to patient complaint EXAM: Reviewed vital signs as charted by RN. PHYSICAL EXAMINATION: reviewed vital signs by RN GENERAL: Well-appearing, well-nourished and in no acute distress. HEAD: Atraumatic, normocephalic. EYES: Pupils equal round and reactive to light, extraocular movements intact, conjunctiva are normal. ENT: Nares patent, oropharynx clear without exudates. Moist mucous membranes. NECK: Normal range of motion, supple without lymphadenopathy LUNGS: Breath sounds clear to auscultation bilaterally and equal. No wheezes rales or rhonchi. HEART: Regular rate and rhythm without murmurs ABDOMEN: Soft, right lower quadrant tenderness on palpation with rebound pain to LLQ, negative mcburney's sign. nondistended abdomen. No guarding, no rebound. No masses appreciated. No CVA tenderness appreciated bilaterally Female : External genitalia without erythema, exudate or discharge. Vaginal vault is without discharge. Cervix is of normal color without lesion. Uterus is noted to be of normal size and nontender. No cervical motion tenderness is seen. No masses are palpated. moderate blood in the vaginal vault without clots, os closed, no adnexal tenderness or mass Musculoskeletal: Normal range of motion, no pitting or edema. No cyanosis. NEUROLOGICAL: Cranial nerves grossly intact. Normal speech, normal gait. Normal sensory, motor exams PSYCH: Normal mood, normal affect. SKIN: Warm, Dry, normal turgor, no rashes or lesions noted. Course - Re-evaluation Re-evalutation: 08/08/20 16:11 Afebrile vital stable male in no distress. Nurses notes reviewed. When I initially walked into the patient's room, there was a distinct and strong scent of marijuana. I did acknowledge this that there is a strong scent of marijuana in the room. Patient denied any illicit drug use. Abdominal examination with right lower quadrant abdominal pain with rebound tenderness on the left. Pelvic exam did have some vaginal discharge. CBC negative for leukocytosis, CMP negative for hepatic or renal dysfunction, lipase normal, beta hCG negative. Patient's drug screen was positive for marijuana. urinalysis CT abdomen pelvis with IV and oral contrast shows a masslike appearance in the uterine cervix within the end of cervical canal possibly a cervical mass. The CT scan did not visualize the appendix the transvaginal ultrasound showed similar findings. I did consult with Dr. Chico Menezes, MINGLER OPERATOR on-call at 1600, she states that she will see her in the office this week for a Pap smear as well as likely an endometrial biopsy. On reevaluation of patient, I did do a repeat abdominal evaluation on patient and she still has right lower quadrant abdominal tenderness. I did consult with Dr. Ebenezer Alarcon, surgeon on-call at 1619, he did come to bedside to evaluate patient. He did also review CT images and noted there was no stranding swelling, fluid collection mass or thickening of the colon in regards to the appendix or for appendicitis. I discussed thoroughly with the patient and surgeon's findings as well as MINGLER OPERATOR's finding and that she does need to follow-up for an appointment this upcoming week. She needs to call on Monday, August 10 to make an appointment. Patient verbalized an understanding of this plan of care and agree with plan of care. After performing a Medical Screening Examination, I estimate there is LOW risk for ACUTE APPENDICITIS, BOWEL OBSTRUCTION, ACUTE CHOLECYSTITIS, PERFORATED DIVERTICULITIS, INCARCERATED HERNIA, PANCREATITIS, PELVIC INFLAMMATORY DISEASE, PERFORATED ULCER, ECTOPIC , or TUBO-OVARIAN ABSCESS, thus I consider the discharge disposition reasonable. Also, there is no evidence or peritonitis, sepsis, or toxicity. I have reevaluated this patient multiple times and no significant life threatening changes are noted. The patient and I have discussed the diagnosis and risks, and we agree with discharging home with close follow-up with the understanding that symptoms and presentations can change. We also discussed returning to the Emergency Department immediately if new or worsening symptoms occur. We have discussed the symptoms which are most concerning (e.g., bloody stool, fever, changing or worsening pain, vomiting) that necessitate immediate return. - Vital Signs Vital signs: Temp Pulse Resp BP Pulse Ox 98.6 F 66 18 129/90 H 99 08/08/20 17:00 08/08/20 17:00 08/08/20 17:00 08/08/20 17:00 08/08/20 17:00 - Laboratory Result Diagrams: 08/08/20 11:05 08/08/20 11:05 Laboratory results interpreted by me: 08/08/20 08/08/20 11:05 13:45 WBC 3.8 L Hct 35.3 L Urine Blood LARGE H Discharge - Discharge Clinical Impression: Cervical mass, Vaginal bleeding Abdominal pain Qualifiers: Abdominal location: right lower quadrant Qualified Code(s): R10.31 - Right lower quadrant pain Condition: Stable Disposition: HOME, SELF-CARE Instructions: Abdominal Pain ([facility]), Observation for Appendicitis ([facility]) Additional Instructions: CT abdomen pelvis as well as her ultrasound both showed in cervical mass, you do need to follow-up with the MINGLER OPERATOR this upcoming week for Pap possible endometrial biopsy. Please give them a call Monday morning for an appointment, please let them know you are seen in the emergency room and you have a possible cervical mass that needs to be evaluated. If you soak through more than 2 pads an hour due to excessive bleeding please return to the emergency room for reevaluation. Return immediately for any new or worsening symptoms. Follow up with primary care provider, call tomorrow to make followup appointment. Forms: Return to Work Referrals: COLLIN MCKNIGHT NP [Primary Care Provider] - Follow up as needed CHICO MENEZES MD [ACTIVE PROVISIONAL STAFF] - 08/10/20
[2020-08-08 11:25] LABS: ABSOLUTE EOSINOPHILS # (AUTO) 0.2 10^3/uL (0.0-0.6); ABSOLUTE MONOCYTES (AUTO) 0.2 10^3/uL (0.1-1.4); ABSOLUTE NEUT (AUTO) 2.4 10^3/uL (1.7-8.2); BASOPHILS % (AUTO) 0.5 % (0-2); EOSINOPHILS % (AUTO) 4.5 % (0-6); HEMATOCRIT 35.3 % (36.0-47.0); HEMOGLOBIN 12.1 g/dL (12.0-15.5); LYMPHOCYTES % (AUTO) 25.3 % (13-45); MEAN CORPUSCULAR HGB CONC 34.4 g/dL (32.0-36.0); MEAN CORPUSCULAR VOLUME 84 fl (80-97); MONOCYTES % (AUTO) 6.3 % (3-13); PLATELET COUNT 198 10^3/uL (150-450); RED BLOOD COUNT 4.19 10^6/uL (3.72-5.28); RED CELL DISTRIBUTION WIDTH 13.6 % (11.5-14.0); SEGMENTED NEUTROPHILS % (AUTO) 63.4 % (42-78); TOTAL CELLS COUNTED % (AUTO) 100 %; WHITE BLOOD COUNT 3.8 10^3/uL (4.0-10.5)
[2020-08-08 11:47] LABS: ALBUMIN 3.8 g/dL (3.5-5.0); ALKALINE PHOSPHATASE 65 U/L (38-126); ANION GAP 8 (5-19); ASPARTATE AMINO TRANSFERASE 24 U/L (14-36); BILIRUBIN,TOTAL 0.3 mg/dL (0.2-1.3); BLOOD UREA NITROGEN 15 mg/dL (7-20); CALCIUM 8.9 mg/dL (8.4-10.2); CARBON DIOXIDE 29 mmol/L (22-30); CHLORIDE 102 mmol/L (98-107); GLUCOSE 96 mg/dL (75-110); POTASSIUM 3.9 mmol/L (3.6-5.0); TOTAL PROTEIN 6.9 g/dL (6.3-8.2)
[2020-08-08] MEDS ORDERED: ONDANSETRON HCL INJ/PF 4 MG/2 ML SDV IV ONE (12:34)
[2020-08-08] MEDS ORDERED: NORMAL SALINE 1000 ML 1,000 ML IV ONE (12:37)
--- NOTE | 2020-08-08 12:51 | RADIOLOGY REPORT (SQ) ---
EXAM DESCRIPTION: U/S NON-OB PELVIS TV W/O DOP IMAGES COMPLETED DATE/TIME: 08/08/2020 11:00 am REASON FOR STUDY: heavy vaginal bleeding, pelvic pain. Unsure LMP. COMPARISON: None. TECHNIQUE: Dynamic and static grayscale images acquired of the pelvis via transvaginal approach and recorded on PACS. Additional selected color Doppler and spectral images recorded. LIMITATIONS: None. FINDINGS: UTERUS: Uterine contour is normal. No myometrial mass. ENDOMETRIAL STRIPE: Endometrium has normal thickness and appearance. No endometrial free fluid. CERVIX: Heterogeneous appearance of the uterine cervix with heterogeneous material within the endocer vical canal. Cannot entirely exclude a heterogeneous endocervical mass. RIGHT OVARY AND DOPPLER: Not visualized. No right adnexal mass. LEFT OVARY AND DOPPLER: Normal size. Normal left ovarian follicle. No worrisome masses. Normal josé luis rial vascular flow without evidence for torsion. FREE FLUID: None noted. OTHER: No other significant finding. MEASUREMENTS: UTERUS: 10.6 x 4.6 x 4.4 cm ENDOMETRIAL STRIPE: 13 mm RIGHT OVARY: Not visualized LEFT OVARY: 3 x 2.5 x 3.1 cm IMPRESSION: Heterogeneous masslike appearance within the cervix may represent debris within the endo cervical canal. Cannot entirely exclude an endocervical mass. Direct visualization is recommended. Correlation with any recent PAP smear for detection of cervical cancer. TECHNICAL DOCUMENTATION: JOB ID: [id number] [employer]- All Rights Reserved Rev-02/09 Reading location - IP/workstation name: [email or web address]
[2020-08-08 14:02] LABS: APPEARANCE,URINE CLEAR; BILIRUBIN,URINE NEGATIVE (NEGATIVE); COLOR,URINE YELLOW; GLUCOSE, URINE NEGATIVE (NEGATIVE); KETONES,URINE NEGATIVE (NEGATIVE); LEUKOCYTE ESTERASE,URINE NEGATIVE (NEGATIVE); NITRITE,URINE NEGATIVE (NEGATIVE); PROTEIN,URINE NEGATIVE (NEGATIVE); URINE SPECIFIC GRAVITY 1.006; UROBILINOGEN,URINE NEGATIVE mg/dL (<2.0)
[2020-08-08 14:15] LABS: T.VAGINALIS (WET MOUNT) NO TRICHOMONAS SEEN; YEAST (WET MOUNT) NO YEAST SEEN
[2020-08-08 14:16] LABS: RBCS (WET MOUNT) 3+ RBCS SEEN; WBCS (WET MOUNT) RARE WBCS SEEN
[2020-08-08 14:22] LABS: URINE AMPHETAMINES SCREEN NEGATIVE; URINE BARBITURATES SCREEN NEGATIVE; URINE BENZODIAZEPINES SCREEN NEGATIVE; URINE COCAINE SCREEN NEGATIVE; URINE METHADONE SCREEN NEGATIVE; URINE PHENCYCLIDINE SCREEN NEGATIVE
[2020-08-08 14:32] LABS: URINE MARIJUANA (THC) SCREEN UNCONFIRMED POSITIVE
--- NOTE | 2020-08-08 15:28 | RADIOLOGY REPORT (SQ) ---
EXAM DESCRIPTION: CT ABD/PELVIS WITH IV ORAL IMAGES COMPLETED DATE/TIME: 08/08/2020 1:46 pm REASON FOR STUDY: RLQ abd pain that radiates to back x 5d COMPARISON: Pelvic ultrasound same date. CT angiography chest, 08/08/2016. TECHNIQUE: CT scan of the abdomen and pelvis performed using helical scanning technique with dynamic intravenous contrast injection. No oral contrast. Images reviewed with lung, soft tissue, and bone windows. Reconstructed coronal and sagittal MPR images reviewed. Delayed images for evaluation of the urinary system also acquired. All images stored on PACS. All CT scanners at this facility use dose modulation, iterative reconstruction, and/or weight based d osing when appropriate to reduce radiation dose to as low as reasonably achievable (ALARA). [facility]: Dose Right [facility]: CareDose [facility]: Dose Right [facility]: Teradose 4D [facility]: [employer]Hired CONTRAST TYPE AND DOSE: contrast/concentration: Isovue 350.00 mmol/ml; Total Contrast Delivered: 100 .0 ml; Total Saline Delivered: 45.0 ml RENAL FUNCTION: GFR > 60. RADIATION DOSE: CT Rad equipment meets quality standard of care and radiation dose reduction techniq ues were employed. CTDIvol: 18.6 - 20.8 mGy. DLP: 2159 mGy-cm.. LIMITATIONS: None. FINDINGS: LOWER CHEST: There is a 1.2 cm nodular density at the left lung base which may represent a true nodule or focal rounded atelectasis. No focal consolidation or pleural effusion. LIVER: The liver is enlarged measuring 22.5 cm craniocaudal at the midclavicular line. Moderate diff use hepatic steatosis. No focal hepatic mass. Hepatic and portal veins are patent. No biliary duct al dilation. SPLEEN: Moderate splenomegaly with spleen measuring 14.4 x 6.8 by 10 cm. No perisplenic fluid or inf lammatory change. PANCREAS: No masses. No significant calcifications. No adjacent inflammation or peripancreatic fluid collections. Pancreatic duct not dilated. GALLBLADDER: No identified stones by CT criteria. No inflammatory changes to suggest cholecystitis. ADRENAL GLANDS: No significant masses or asymmetry. RIGHT KIDNEY AND URETER: No solid masses. No significant calcifications. No hydronephrosis or hyd roureter. LEFT KIDNEY AND URETER: No solid masses. No significant calcifications. No hydronephrosis or hydr oureter. AORTA AND VESSELS: The aorta has normal caliber and appearance. No aortic dissection. No significan t stenosis or plaque. There is a left common iliac and external iliac stent. This is poorly evaluat ed on CT. RETROPERITONEUM: No retroperitoneal adenopathy or free fluid. No retroperitoneal mass. BOWEL AND PERITONEAL CAVITY: No masses or inflammatory changes. No free fluid or peritoneal masses. APPENDIX: Not visualized. PELVIS: The uterus has normal size and contour. No myometrial mass. There is focal masslike appeara nce at the uterine cervix measuring 5.1 x 2.7 cm on sagittal images extending throughout the uterine cervix, without definitive involvement of the vagina. This is consistent with the pelvic ultrasound demonstrating a masslike appearance in the uterine cervix possibly debris within the endocervical can al versus a true mass at the uterine cervix. This may be secondary to cervical stenosis or and endoc ervical mass. Ovaries have normal size. Dominant follicle left ovary unchanged. Urinary bladder terrell s normal contour and appearance. No bladder wall thickening, intraluminal bladder mass or debris. T here is no pelvic adenopathy. No free fluid in the pelvic cul-de-sac. . ABDOMINAL WALL: No masses. No hernias. BONES: No significant or acute findings. OTHER: No other significant finding. IMPRESSION: 1. Masslike appearance at the uterine cervix may represent debris within the endocervical canal or po ssibly a cervical mass such as cervical carcinoma. Direct visualization and sampling is recommended. Correlation with recent Pap smear results also recommended. 2. Hepatosplenomegaly with moderate hepatic steatosis. Finding is nonspecific. TECHNICAL DOCUMENTATION: JOB ID: [id number] Quality ID # [id number]: Final reports with documentation of one or more dose reduction techniques (e.g., Au tomated exposure control, adjustment of the mA and/or kV according to patient size, use of iterative reconstruction technique) 2010 [employer]- All Rights Reserved Reading location - IP/workstation name: [email or web address]
[2020-08-08 15:42] LABS: CHLAM PCR NOT DETECTED (NOT DETECT)
--- NOTE | 2020-08-08 17:01 | PDOC CONSULTATION ---
Consultation Consult Date: 08/08/20 Attending physician:: SANDRINE SETUP Provider Consulted: DORENE DE DIOS History of Present Illness Admission Date/PCP: COLLIN MCKNIGHT NP History of Present Illness: CRISTEL LEMUS is a 35 year old female presents to the emergency room today with right lower quadrant abdominal pain that radiates to her back for the last 2 weeks as well as vaginal bleeding that started 5 days ago, she states she is going through 5 pads a day. Patient states that she missed her menstrual cycle in June 2020. Patient is not on control, she did not take a test when she missed her menstrual cycle in June. Patient did have surgery on her left knee on August 04 in [place] on the posterior aspect of her knee, she states they did a test that day and it was negative. Patient reports she has not had an appendectomy or cholecystectomy. reports pain is stabbing and throbbing. Has not seen her primary care provider for this issue Past Medical History Cardiac Medical History: Reports: DVT Pulmonary Medical History: Reports: Asthma Psychiatric Medical History: Reports: Depression - and anxiety Past Surgical History Past Surgical History: Reports: Section - x 3 Social History Smoking Status: Former Smoker Family History Family History: Reviewed & Not Pertinent, Malignancy Parental Family History Reviewed: No Children Family History Reviewed: NA Sibling(s) Family History Reviewed.: NA Medication/Allergy Home Medications: Naproxen [Naprosyn] 500 mg PO BID #20 tablet 12/02/19 Sulfamethoxazole/Trimethoprim [Bactrim Ds Tablet] 1 tab PO BID #20 tablet 12/02/19 Triamcinolone Acetonide 15 gm TP BID #10 oint...g. 12/02/19 Allergies/Adverse Reactions: No Known Allergies Allergy (Verified 12/01/19 20:59) Review of Systems Constitutional: PRESENT: weight loss - elective Eyes: PRESENT: as per HPI Ears: PRESENT: as per HPI Nose, Mouth, and Throat: ABSENT: as per HPI, headache(s), mouth pain, sore throat, vertigo, other Breasts: ABSENT: as per HPI, other Cardiovascular: ABSENT: as per HPI, chest pain, dyspnea on exertion, edema, orthropnea, palpitations, other Respiratory: ABSENT: as per HPI, cough, dyspnea, hemoptysis, sputum, other Gastrointestinal: PRESENT: abdominal pain Genitourinary: ABSENT: as per HPI, difficulty urinating, dysuria, hematuria, nocturia, other Musculoskeletal: ABSENT: as per HPI, back pain, deformity, joint swelling, muscle weakness, other Integumentary: ABSENT: as per HPI, diaphoresis, erythema, lesions, pruritus, rash, wounds, other Neurological: ABSENT: as per HPI, abnormal gait, abnormal movements, abnormal speech, confusion, convulsions, dizziness, focal weakness, frequent falls, lack of coordination, memory loss, numbness, paresthesias, restless legs, syncope, tingling, tremor(s), vertigo, weakness, other Psychiatric: ABSENT: as per HPI, anxiety, depression, hallucinations, homidical ideation, suicidal ideation, other Endocrine: ABSENT: as per HPI, cold intolerance, flushing, heat intolerance, menstrual abnormalities, polydipsia, polyphagia, polyuria, other Hematologic/Lymphatic: ABSENT: as per HPI, easy bleeding, easy bruising, lymphadenopathy, other Allergic/Immunologic: ABSENT: as per HPI, seasonal rhinorrhea, other Physical Exam Vital Signs: Temp Pulse Resp BP Pulse Ox 97.4 F 73 16 139/90 H 98 08/08/20 09:53 08/08/20 09:53 08/08/20 09:53 08/08/20 09:53 08/08/20 09:53 Intake & Output 08/07/20 08/08/20 08/09/20 06:59 06:59 06:59 Intake Total 1000 Balance 1000 General appearance: PRESENT: morbidly obese Head exam: PRESENT: atraumatic Eye exam: PRESENT: EOMI Ear exam: PRESENT: normal external ear exam Mouth exam: PRESENT: moist Teeth exam: ABSENT: dental caries, dental tenderness, edentulous, poor dentation, other Throat exam: ABSENT: post pharyngeal erythema, tonsillar erythema, tonsillar exudate, tonsillogmegaly, other Neck exam: PRESENT: full ROM Respiratory exam: PRESENT: clear to auscultation petra Cardiovascular exam: PRESENT: bradycardia, RRR Pulses: PRESENT: normal radial pulses, normal femoral pulses Vascular exam: PRESENT: normal capillary refill Breast: PRESENT: Normal GI/Abdominal exam: PRESENT: soft - pt with large pannus extending to mons on palpation of pannus alone elicits pain no cellulitis, no lymphedema Rectal exam: PRESENT: deferred Extremities exam: PRESENT: full ROM Musculoskeletal exam: PRESENT: full ROM Neurological exam: PRESENT: alert, awake, oriented to person, oriented to place Psychiatric exam: PRESENT: appropriate affect Skin exam: PRESENT: dry Results Laboratory Results: 08/08/20 11:05 08/08/20 11:05 08/08/20 08/08/20 08/08/20 11:05 11:05 13:45 WBC 3.8 L RBC 4.19 Hgb 12.1 Hct 35.3 L MCV 84 MCH 29.0 MCHC 34.4 RDW 13.6 Plt Count 198 Seg Neutrophils % 63.4 Sodium 139.3 Potassium 3.9 Chloride 102 Carbon Dioxide 29 Anion Gap 8 BUN 15 Creatinine 0.61 Est GFR ( Amer) > 60 Glucose 96 Calcium 8.9 Total Bilirubin 0.3 AST 24 Alkaline Phosphatase 65 Total Protein 6.9 Albumin 3.8 Lipase 52.6 Urine Color YELLOW Urine Appearance CLEAR Urine pH 6.0 Ur Specific [place] 1.006 Urine Protein NEGATIVE Urine Glucose (UA) NEGATIVE Urine Ketones NEGATIVE Urine Blood LARGE H Urine Nitrite NEGATIVE Ur Leukocyte Esterase NEGATIVE Urine WBC (Auto) 5 Urine RBC (Auto) 155 Impressions: Transvaginal US 08/08/20 11:22 IMPRESSION: Heterogeneous masslike appearance within the cervix may represent debris within the endocervical canal. Cannot entirely exclude an endocervical mass. Direct visualization is recommended. Correlation with any recent PAP s mear for detection of cervical cancer. Abdomen/Pelvis CT 08/08/20 11:23 IMPRESSION: 1. Masslike appearance at the uterine cervix may represent debris within the endocervical canal or possibly a cervical mass such as cervical carcinoma. Direct visualization and sampling is recommended. Correlation with recent Pap smear results also recommended. 2. Hepatosplenomegaly with moderate hepatic steatosis. Finding is nonspecific. Assessment & Plan - Plan Summary Plan Summary: impression lower abd pain for 2 wks since her ortho surgery denies vomiting, eating well no appetite changes surgery consulted for appendicitis for rlq pain althouh on palpation pt has pain accross her pannus and into the left and right side no rebound tenderness ct findings as well as laporatory results reviewd no evidence on ct for appendicitis although the specific appendix cannot be seen, there is no stranding swelling fluid collection mass or thickening of the colon c/w appendicitis wbc wnl there is a cervical cyst vs mass seen which is being addressed by 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 pt can be discharged with instructions to return if pain gets worse abdominal support for her pannus and wt loss has been discussed.
[2020-08-08 17:05] VITALS: BP 129/90
== END 2020-08-08 17:24 | disposition home or self-care (01) ==
LOC: ER 09:40
DX: N88.9 Noninflammatory disorder of cervix uteri, unspecified (principal); R10.31 Right lower quadrant pain; R10.813 Right lower quadrant abdominal tenderness; N93.9 Abnormal uterine and vaginal bleeding, unspecified; R16.2 Hepatomegaly with splenomegaly, not elsewhere classified; K76.0 Fatty (change of) liver, not elsewhere classified; E66.01 Morbid (severe) obesity due to excess calories; N89.8 Other specified noninflammatory disorders of vagina; J45.909 Unspecified asthma, uncomplicated; Z98.890 Other specified postprocedural states; Z79.891 Long term (current) use of opiate analgesic; Z79.1 Long term (current) use of non-steroidal anti-inflammatories (NSAID); Z79.899 Other long term (current) drug therapy; Z79.2 Long term (current) use of antibiotics; Z87.891 Personal history of nicotine dependence
CPT/HCPCS: 99285; 96361; 96374; 36415; 87210; 84702; 83690; 85025; 80053; 81001; 80307; 87491; 87591; 76830; 74177; J2405; J7030